=== PATIENT | female | born 1965 | race Caucasian/White ===

== ENCOUNTER → 2021-08-07 | Outpatient (CLI) | payer BC ==
--- NOTE | 2021-08-07 10:50 | MM ---
Reason for exam: screening (asymptomatic). Last mammogram was performed 4 years and 3 months ago. Physical Findings: A clinical breast exam by your physician is recommended on an annual basis and results should be correlated with mammographic findings. MG 3D Screening Mammo W/Cad Bilateral CC and MLO view(s) were taken. Prior study comparison: April 24, 2017, mammogram. March 09, 2016, mammogram. The breast tissue is heterogeneously dense. This may lower the sensitivity of mammography. There are benign appearing round calcifications in the right breast. There is no discrete abnormality. ASSESSMENT: Benign, BI-RAD 2 RECOMMENDATION: Routine screening mammogram of both breasts in 1 year.
== END | disposition home or self-care (01) ==
LOC: RADMAMWWP 09:27
PROVIDERS: ATTEND Internal Medicine
DX: Z12.31 Encounter for screening mammogram for malignant neoplasm of breast (principal)
CPT/HCPCS: 77063; 77067

== ENCOUNTER → 2021-09-18 | Outpatient (CLI) | payer BC ==
--- NOTE | 2021-09-18 07:54 | MR ---
EXAMINATION TYPE: MR lumbar spine wo con DATE OF EXAM: 09/18/2021 COMPARISON: Outside MRI lumbar spine January 31, 2021 images, report not available HISTORY: Prior outside imaging on synapse, low back pain, history of sx L5-S1 TECHNIQUE: Multiplanar, multisequence imaging of the lumbar spine is performed without IV contrast. FINDINGS: Current exam is degraded by patient motion. Sagittal images of the lumbar spine show verteb ral body heights and alignment to remain satisfactory. Multilevel disc desiccation is present. Disc s pace heights are maintained. There is redemonstration artifact from surgical change at L5-S1 level wi th artificial metallic disc material and posterior interpedicular rods and screws. The conus medulla ris remains normal in position and signal ending mid L1 level. The bone marrow signal intensity is w ithin normal limits above and below level of surgery. Axial images show T12-L1 and L1-L2 levels to remain within normal limits. Axial images at L2-L3 level redemonstrated mild facet degenerative changes bilaterally with focal rig ht paracentral disc protrusion mildly facing anterior thecal sac. Patent bilateral neural foramina. N o significant change from prior. Axial images at L3-L4 level showed mild broad disc bulge with posterior annular tear mildly effaces t he anterior thecal sac, patent bilateral neural foramina. No significant change from prior. Axial images at L4-L5 level mild broad-based posterior disc protrusion mildly effacing the anterior t hecal sac and some artifact from inferior surgical change. Patent bilateral neural foramina. No signi ficant change from prior. Axial images at L5-S1 level show artifact from posterior surgical change, spinal canal is preserved. The bilateral neural foramina are patent. No significant change from prior. IMPRESSION: Post surgical change L5-S1 level redemonstrated. Stable and satisfactory alignment. Multi level degenerative changes in the mid to lower lumbar spine again seen. No significant degenerative p rogression from prior MRI.
== END | disposition home or self-care (01) ==
LOC: RADMRIMAIN 07:02
PROVIDERS: ATTEND Orthopaedic Surgery
DX: M47.816 Spondylosis without myelopathy or radiculopathy, lumbar region (principal)
CPT/HCPCS: 72148

== ENCOUNTER → 2021-09-19 | Outpatient (CLI) | payer BC ==
--- NOTE | 2021-09-19 08:45 | CT ---
EXAMINATION TYPE: CT lumbar spine wo con DATE OF EXAM: 09/19/2021 7:14 AM COMPARISON: HISTORY: low back pain CT DLP: 555.3 mGycm Automated exposure control for dose reduction was used. Unenhanced CT of the lumbar spine was performed. Bone and soft tissue window settings are submitted as well as coronal and sagittal reconstructions. L1-L2: Normal disc space height. No disc herniation protrusion or central stenosis. No facet joint arthropathy. No evidence for foraminal encroachment. L2-L3: Normal disc space height. No disc herniation protrusion or central stenosis. No facet joint arthropathy. No evidence for foraminal encroachment. L3-L4: Normal disc space height. No disc herniation protrusion or central stenosis. No facet joint arthropathy. No evidence for foraminal encroachment. L4-L5: Grade 1 anterolisthesis measuring 2 mm. Mild degenerative disc space narrowing. Mild posterior disc bulge. No herniation or central stenosis. No foraminal encroachment visualized this time. L5-S1: mild broad-based posterior disc protrusion mildly effacing the anterior thecal sac and some ar tifact from inferior surgical change. Patent bilateral neural foramina. IMPRESSION: 1. Mild broad-based posterior disc protrusion L5-S1. Streak artifact from a surgical change
== END | disposition home or self-care (01) ==
LOC: RADCTMAIN 06:56
PROVIDERS: ATTEND Orthopaedic Surgery
DX: M51.27 Other intervertebral disc displacement, lumbosacral region (principal)
CPT/HCPCS: 72131

== ENCOUNTER → 2021-09-27 | Outpatient (CLI) | payer BC ==
[2021-09-27 18:45] LABS: Basophils # (A) 0.01 X 10*3/uL (0.00-0.10); Basophils % (A) 0.3 %; Eosinophils # (A) 0.04 X 10*3/uL (0.04-0.35); HCT 36.8 % (37.2-46.3); HGB 12.5 g/dL (12.0-15.0); Immature Grans, Automated 0.3 %; Lymphocytes # (A) 1.01 X 10*3/uL (0.90-5.00); Lymphocytes % (A) 26.5 %; MCH 31.3 pg (27.0-32.0); Mean Platelet Volume 12.7 fL (9.5-12.2); Monocytes # (A) 0.43 X 10*3/uL (0.20-1.00); Monocytes % (A) 11.3 %; NRBC Per 100 WBC 0 /100 WBCS (0.0-0.0); Neutrophils # (A) 2.31 X 10*3/uL (1.80-7.70); Neutrophils % (A) 60.6 %; Platelet Count 153 X 10*3/uL (140-440); RDW 12.5 % (11.5-14.5); WBC 3.81 X 10*3/uL (4.50-10.00)
[2021-09-27 21:56] LABS: African American GFR (CKD) 95.5 (60.0-200.0); BUN/Creat Ratio 13.79 Ratio (12.00-20.00); Blood Urea Nitrogen 11.1 mg/dL (9.0-27.0); Carbon Dioxide 22.6 mmol/L (20.0-27.5); Chloride 98 mmol/L (96-109); Glucose 93 mg/dL (70-110); Non-African American GFR(CKD) 82.4 (60.0-200.0); Potassium 4.2 mmol/L (3.5-5.5); Sodium 137 mmol/L (135-145)
[2021-09-27 21:57] LABS: ALT 30 U/L (8-44); AST 34 U/L (13-35); Albumin 4.6 g/dL (3.8-4.9); Albumin/Globulin Ratio 1.71 (1.60-3.17); Alkaline Phosphatase 79 U/L (41-126); Amylase 24 U/L (23-121); Bilirubin, Conjugated <0.20 mg/dL (0.20-0.40); C Reactive Protein <0.30 mg/dL (0.00-0.80); Globulin 2.7 g/dL (1.6-3.3); Lipase 11 U/L (14-63); Total Protein 7.3 g/dL (6.2-8.2)
[2021-09-27 22:04] LABS: Erythrocyte Sedimentation Rate 32 mm/Hr (0-30)
== END | disposition home or self-care (01) ==
LOC: LABWHC1 10:08
PROVIDERS: ATTEND Orthopaedic Surgery
DX: M47.816 Spondylosis without myelopathy or radiculopathy, lumbar region (principal)
CPT/HCPCS: 36415; 80048; 80076; 82150; 82306; 83690; 85025; 85652; 86140

== ENCOUNTER → 2021-10-11 | Outpatient (CLI) | payer BC ==
--- NOTE | 2021-10-11 16:22 | US ---
EXAMINATION TYPE: US abdomen complete DATE OF EXAM: 10/11/2021 COMPARISON: CLINICAL HISTORY: R10.84 ABD PAIN. Generalized pain. Hx GB removed. EXAM MEASUREMENTS: Liver Length: 13.9 cm CBD: 0.4 cm Spleen: 9.6 cm Right Kidney: 10.4 x 4.3 x 4.1 cm Left Kidney: 9.9 x 4.5 x 4.4 cm Pancreas: wnl Liver: wnl Gallbladder: Surgically absent Evidence for sonographic Her's sign: neg CBD: wnl Spleen: wnl Right Kidney: No hydronephrosis or masses seen Left Kidney: No hydronephrosis or masses seen Upper IVC: wnl Abd Aorta: Limited visualization of proximal due to bowel gas IMPRESSION: 1. No acute ultrasound abnormality.
== END | disposition home or self-care (01) ==
LOC: RADUSWWP 12:12
PROVIDERS: ATTEND Internal Medicine
DX: R10.84 Generalized abdominal pain (principal)
CPT/HCPCS: 76700

== ENCOUNTER 2021-11-30 12:00 | Inpatient (IN) | payer BC ==
[2021-12-25 10:58] VITALS: BMI 24.7
--- NOTE | 2021-12-25 16:34 | P.HPOR ---
History of Present Illness H&P Date: 12/18/21 [facility] Date of :[birth year] Age: 56 year Height: 5'10" Weight: 175 lbs BMI: 25.11 kg/m2 Occupation: net software engineer VAS: 8 CHIEF COMPLAINT: Lumbar pain HISTORY: Xrays No new xrays taken in office Trauma or injury No Work-Related No Pain description aching, sharp. Location diffuse Activity Modification yes , unable to stand or ambulate for extended periods of time. Hand Dominance right DOI: Chronic, no injury or trauma. DOS: S/P failed lumbar fusion 2007 and revision in 2008 TREATMENTS COMPLETED: 6 weeks of PT completed? Yes Did it help? No Physician directed home exercise completed? Yes, has trialed but it exacerbates her symptoms. Medications yes List: Percocet, Oxycontin, Robaxin all without discernable improvements to her symptoms. Alternative interventions Chiropractic: No Massage therapy: No Brace: No Injections Yes (lumbar VIV) How many? 1 Did they help? No RFA: No SUBJECTIVE: Patient returns to the office for a pre-operative review of the planned revision L4-S1 decompression and fusion. Since the time of the last appointment the patient denies any improvements to her symptoms. She reports that her symptoms have continued to significantly impact her ability to perform daily functions and has failed to improve with all conservative modalities. Patient is understa nding of this and agrees to proceed with the planned procedure. She denies any any bladder or bowel retention/incontinence, no perineal numbness/tingling, and ambulates independently. Of note, she denies any changes to her current course of medications. HPI: Patient last presented to the office on 10/11/2021 for a recheck of her lumbar spine and to review her CT and MRI obtained after the time of the last appointment. Since the time oft he last appointment the patient reports that her symptoms have not changed. She reports having continued with the physician recommended HEP without any improvements. Overall she reports no discernable improvements with any conservative modalities trialed thus far. She is having continued pain with activities and decreased ability to complete her daily tasks due to her symptoms. Otherwise she continues to deny any bladder or bowel retention/incontinence, no perineal numbness/tingling, and ambulates independently. Of note, she denies any changes to her current course of medications. Ms. Arriaga last presented to the office on 09/06/2021 for an evaluation of her lumbar spine. Patient reports diffuse low back pain ongoing for 11 months with no known trauma or injury to indicate an exact onset of her symptoms. She describes this pain as "sharp" and radiates down into the left buttock and anterolateral thigh. Her symptoms are exacerbated with and standing or ambulation. Due to this she notes great difficulty with completing many of her daily tasks. Patient does report that her symptoms have progressively worsened since the onset and so has her disability. As for treatments the patient notes that she has been previously managed by Dr. Cervantes regarding her lumbar spine. She has had a lumbar VIV with no improvements to her symptoms. Additionally she has recently completed a course of PT with no improvements. She denies completing home exercises as it exacerbates her symptoms. Patient has trialed Percocet, Oxycontin, and Robaxin for greater than 3 months with no improvements to her symptoms. Of note, the patient does report having a history of a failed fusion done in [place] in 2007 and then a subsequent revision in 2008. Otherwise she denies any bladder or bowel issues, no perineal numbness/tingling, and is ambulating without the use of any aides. The patients' past social, medical, family, surgical history, as well as review of systems, have been reviewed. Please refer to the Neurosurgery History and Physical form that has been scanned in to our electronic medical record system. 14 points review of systems completed and as stated in HPI, all other systems reviewed are negative. Social History: Reviewed, see appropriate section of the chart for details. D9Mpnhsyx: never a smoker P3 Alcohol: none P3 Family History: Reviewed, see appropriate section of the chart for details. H9Donxpm: alive diabetes.hypertension. P2 Father: [place] P2 Sibling(s): MVA,colon cancer. P2 Family History: colon cancer. [place] diabetes.hypertension. P2 Past Medical History: Reviewed, see appropriate section of the chart for details. P1 Current Medications: P1Rx: OxyCONTIN 20 mg tablet,crush resistant,extended release Ref: 0 Rx: Percocet 10 mg-325 mg tablet Ref: 0 Rx: Protonix 40 mg tablet,delayed release Ref: 0 Rx: Robaxin Ref: 0 P1 PHYSICAL EXAMINATION: General: Awake, alert, appropriate for age, in no acute distress. HEENT: No unusual neck masses around region of lateral neck triangle, thyroid, supraclavicular groove Heart: Regular rate and rhythm, normal S1, S2 and no murmur/gallop. Lungs: Clear to auscultation bilaterally with no use of accessory muscles. Extremities: Skin warm and dry without acute lesions, coloration, temperature, skin intact, no tenderness or erythema Integument: Hairy patches: Absent Dorsal skin dimples: Absent Cafe au lait spots: Absent Surgical incisions: yes , well healed Palpation: Please see Pain drawing on Intake sheet for further detail. Midline spinal tenderness: Yes E6 Paralumbar tenderness: Yes E6 Parathoracic tenderness: No E6 Buttocks tenderness: No E6 Special findings: No POSTURAL and MUSCULO-SKELETAL EVALUATION: Coronal Balance: NEUTRAL Recumbent testing: Patient is able to lay flat on back Sagittal Balance: NEUTRAL Shoulder Profile: LEVEL Pelvic Girdle: LEVEL Neck ROM: UNRESTRICTED Lumbar ROM: RESTRICTED Shoulder ROM: Symmetrical Hip ROM: Symmetrical Knee ROM: Symmetrical Hands: Normal appearance, symmetrical Feet: Normal appearance, Symmetrical VASCULAR STATUS : LEFT RIGHT Wrist Pulses INTACT INTACT Pedal Pulses (Dors. pedis & post.tibialis) INTACT INTACT Color NORMAL NORMAL Edema Absent Absent NEUROLOGIC EXAMINATION: Mental Status:Awake and alert, fully oriented, with normal attention, concentration and memory, and fluent, appropriate speech. Cranial Nerves: I: Olfactory not tested. II: Visual acuity normal, no visual field deficit noted with confrontation. III,IV: Normal pupillary reflexes & intact extraocular movements without nystagmus. V,: Intact symmetrical facial sensation. VII: Intact symmetrical facial motor movement VIII: Hearing intact. IX,X: Intact gag, swallow, & normal voice. XI: Sternocleidomastoid, trapezius function intact. XII: Tongue midline with normal movements. L'hermitte's Sign: Negative / absent Spurling'Sign: Absent bilaterally. Cubital percussion test: Absent bilaterally. Russell-Tinel sign - Carpal region: Absent bilaterally. Straight Leg Raising: Absent bilaterally. Crossed straight leg raise: negative O8 MOTOR EXAM (0-5/5, N/T) STRENGTH RIGHT LEFT Shoulder Abd (not part of the ANTONINA score) 5 5 Elbow Flexors 5 5 Elbow Extensor 5 5 Wrist Dorsiflexors 5 5 Finger Abductor 5 5 Painting Worker 5 5 Hip Flexor (Not part of ANTONINA Motor score) 5 4+ Knee Flexor 5 5 Knee Extensor 5 5 Ankle dorsiflexor 5 5 Ankle plantarflexion 4 4+ Extensor hallucis 5 5 REFLEXES(0-4/2, NT) RIGHT LEFT Upper Extremities 2 2 Lower Extremities 2 2 Pathological Reflexes RIGHT LEFT Russell's Absent Absent Clonus Absent Absent Babinski Absent Absent # Indicates mechanical impairment Muscle appearance: Symmetrical, without signs of atrophy or dystrophy. Sensory system (0-4, N/T) Test type RU NEEL RL LL Joint-Position 2 2 2 2 Vibration 2 2 2 2 Pain & LT sense 2 2 2 2 Dermatomal Deficit: None None None L5-S1 Gait and Functional Evaluation: Ambulatory aids: Independent Romberg's test: Intact bilaterally Toe heel walk / heel-toe walk intact while maintaining satisfactory balance? yes Squatting/straightening w/o assistance to a min of 60 degree knee flexion? yes Single leg stance: Positive on the left Trendelenburg sign negative bilaterally Hand and finger dexterity intact bilaterally? yes Disdiadochokinesis examination negative bilaterally? yes RADIOGRAPHIC STUDIES: XRay taken on 09/06/21 of Lumbar Spine: Post surgical changes noted with 360 fusion construct at L5-S1 with good fusion block noted. There is no evidence of hardware failure on xray. There is a grade I unstable spondylolisthesis with ASD of L4-5 noted. There is severe facet arthrosis and insufficiency at L4-5 noted causing this. There are no fractures noted. There is likely b/l foraminal stenosis due to this slip. There are no fractures noted. AP pelvis show level congruent pelvis w/o fracture. CT scan from 09/19/2021 of the lumbar spine demonstrates: this is reviewed and demonstrate a grade 1 spondylolisthesis L4-L5 with adjacent segment disease postoperative changes noted L5-S1 with reasonable fusion at this level. There is no other fracture dislocation noted no lesions noted. Hounsfield units above 120 MRI scan from 09/18/2021 of the lumbar spine demonstrates: this is reviewed in office today and demonstrates grade 1 spondylolisthesis L4 and L5 with postoperative changes L5-S1 area there is bilateral foraminal stenosis L4-L5 with boggy facets facet hypertrophy ligamental hypertrophy as well as the slip. There is no fracture or other dislocation noted. No lesions CBC, BMP, CRP, Sed Rate, Total Protein, Albumin, and Vitamin D labs are reviewed. These do not demonstrate any infective process at this time. IMPRESSION AND PLAN: It was my pleasure to have seen and examined Petrona. I reviewed the patient's clinical syndrome, physical findings, and imaging studies during the appointment today. It is my impression that the patient has a diagnosis of. 1. S/P L5-S1 revision fusion 2.L4-L5 ASD with grade 1 spondylolisthesis 3. left lower extremity radiculopathy 4. lower extremity weakness I outlined the natural course history without intervention and various interventional options. Based on my findings I suggest the following course of action: 1.The nature of the disorder and treatment options were discussed with the patient. I discussed treatment options with the patient, including operative and non- operative options, and they have elected to proceed with the following surgical procedure: Revision L4-S1 decompression and fusion The indications, risks, benefits, and alternatives to surgery were discussed with the patient at length. Specifically (but not limited to) the risks of infection, stiffness, recurrence of symptoms, need for revision surgery, local numbness, neurovascular injury, and blood clots were discussed. The patient's questions were answered. The decision to proceed was made. Consent will be obtained for the procedure. Spine Surgery Risk Review Petrona Arriaga is presenting for evaluation of low back pain. It was my pleasure to have seen and examined Petrona Arriaga. In our visit today we have had a chance to go over subjective complaints, physical examination findings and treatments including the natural course history without intervention and various interventional options. The patients imaging demonstrates Xrays: Post surgical changes noted with 360 fusion construct at L5-S1 with good fusion block noted. There is no evidence of hardware failure on xray. There is a grade I unstable spondylolisthesis with ASD of L4-5 noted. There is severe facet arthrosis and insufficiency at L4-5 noted causing this. There are no fractures noted. There is likely b/l foraminal stenosis due to this slip. There are no fractures noted. AP pelvis s how level congruent pelvis w/o fracture. CT: this is reviewed and demonstrate a grade 1 spondylolisthesis L4-L5 with adjacent segment disease postoperative changes noted L5-S1 with reasonable fusion at this level. There is no other fracture dislocation noted no lesions noted. Hounsfield units above 120. MRI: this is reviewed in office today and demonstrates grade 1 spondylolisthesis L4 and L5 with postoperative changes L5-S1 area there is bilateral foraminal stenosis L4-L5 with boggy facets facet hypertrophy ligamental hypertrophy as well as the slip. There is no fracture or other dislocation noted. No lesions On physical exam, Petrona Arriaga demonstrates severely restricted lumbar ROM with bilateral lower extremity radiculopathy and weakness. I have explained to the patient that as their condition progresses it will cause further neurological deficits and eventual paralysis. Based on the patients im aging, physical exam, and the rapid progression and disabling nature of their symptoms, at this time I recommend surgery in the form or a: Revision L4-S1 decompression and fusion. I discussed the risk and benefits of this procedure at length with Petrona Arriaga. The patient agreed to considered pursuing the procedure abovementioned. Prior to surgery, she should follow up with her PCP (Cardio, ID, IM etc) for clearance. Questions were invited and answered, and the patient wishes to proceed as outlined below. Currently, I am recommendin.Revision L4-S1 decompression and fusion 2.Follow up with PCP for surgical clearance 3.Review of surgical risks and benefits as well as an educational packet on t he proposed surgical procedure. Risks: All surgical procedures come with inherent risks, including those related to positioning, anesthesia, intraoperative findings, and postoperative complications. It is important to understand that surgery does not come with any guarantee of a successful outcome as complications and adverse events are always possible. The patient was given a handout in office today discussing the surgical procedure and risks associated with the intervention, both of which were discussed with the patient. These risks include but are not limited to the following: * Experiencing same, different or even worse symptoms in back, neck, arms, or legs compared to before surgery. Requiring further surgery or other forms of treatment presently or at some time in the future at same or other levels of the intended spine surgery. On an extreme but fortunately relatively rare basis severe complication such as blindness, stroke, heart attack, temporary and/or permanent nerve injury, paralysis, coma, or may occur, sometimes without known explanation. Surgical complications may include but are not limited to risk of infection, fluid accumulation in the surgical dissection site, including a seroma or hematoma, that requires additional surgery, wound drainage, bleeding, new numbness or weakness, vision changes/loss, spinal fluid leakage, non-healing and/or infected incision, headaches, difficulty or inability to swallow, hoarseness, hemopneumothorax, pneumothorax, impotence, retrograde ejaculation, vaginal dryness; injury to nerves, spinal cord, blood vessels, lymphatics or other vital organs (i.e., bowel injury, injury to the great vessels); heterotopic bone formation; complications related to the hardware such as screws, rods, cages including misplaced hardware, device failure, instrumentation at the wrong spine level, hardware fracture/breakage, or hardware loosening; vertebral failure of the spinal column above or below the newly placed hardware; retained surgical instrumentations or devices and the need for further surgery. * Medical risks of the planned spine surgery include but are not limited to generalized Infections to the whole body or local areas outside of the surgical site (sepsis), heart attack, bleeding, anaphylaxis, meningitis, seizure, epilepsy, hearing loss, burn little, laceration of the head or other areas of the body, bruising, hypersensitivity of the skin, bladder over distension; allergic reaction; shoulder injury related to positioning; fat, blood and air clots to other areas of the body like heart, lungs, brain; failure of internal organs such as lungs, kidneys, liver and excessive bleeding. If blood transfusions are necessary, note that transfusions may cause intolerance reactions such as anaphylaxis or other complex reactions. Despite best efforts, the results of spine surgery might not heal in terms of bone, soft tissues such as skin, fascia, ligaments, and joints. Additionally, in order to achieve best possible results, spine surgery may be carried out beyond the initially planned levels and involve decompression, fusion including insertion of hardware at levels other than the original intended area of surgical interest change some portions of the procedure in order to ensure the best possible outcomes. With spine surgery and spinal fusion, there are different off label uses of instrumentation (devices, implants and hardware) as well as biological substances (bone morphogenic proteins, demineralized bone matrix) as well as using extra bone from allograft sources (i.e. cadaver bone) or autograft (iliac crest bone, ribs, or the spine itself). The patient has been given information about these practices and their inherent risks and benefits. [facility] is an educational center that serves as a training facility for neurosurgical and orthopedic MOBILE PRODUCT MANAGER and Nursing students. Physician assistants are medically trained surgical providers who function in the outpatient, inpatient, and operating room setting under the direct supervision of the attending surgeon. [facility] has multiple operating rooms with single and overlapping rooms running daily. They currently function under the required guidelines as produced by the [facility] Finance Committee with regards to the overlapping rooms and will continue to comply with changes to this policy as they occur. The requirements include and are complied with as follows: (1) the critical portions of the overlapping rooms will not occur at the same time, (2) the attending physician will be physically present during the critical portions of the procedure and immediately available during the entire case, and (3) a back-up attending is designated should the primary attending not be immediately available. The patient has had a chance to review all the listed information, has been given print outs detailing this information, and has had all his/her questions answered to their satisfaction. It was my pleasure to have seen and examined Petrona Arriaga. In our visit today we have had a chance to go over my understanding of our patient's current condition, the natural course history without intervention and various interventional options. Questions were invited and answered, and the patient wishes to proceed as outlined above. I have seen and examined the patient for 25 minutes and we have spent more than 50% of the time in repeat and detailed counseling about the patient's condition, its natural course history with out and as much as can be predicted with surgery and re-review of various surgical treatment options. In conclusion, Petrona Arriaga requested we proceed with the above suggested surgery and are willing to accept risks and limitations of the suggested surgery as nature of the disease process and our best attempts at treatment for the condition. Thank you again for allowing us to be part of your patient's care. Please don't hesitate to contact me if you have any further questions. Signed and authenticated by: [employer] P:\\\\ppart\\\\[id number]\\\\[id number]\\[id number].PNG \\d Fam [facility] Complex and Minimally Invasive Spine Surgery [address] [place] [address] Past Medical History Past Medical History: GERD/Reflux Additional Past Medical History / Comment(s): hx stomach ulcer, internal hemorrhoids., back pain History of Any Multi-Drug Resistant Organisms: None Reported Past Surgical History: Back Surgery, Section, Hysterectomy, Orthopedic Surgery Additional Past Surgical History / Comment(s): back surgery x2, neck surgery, left rotator cuff, 9 arthroscopic knee surgeries, several abdominal surgeries for endometriosis. Past Anesthesia/Blood Transfusion Reactions: Postoperative Nausea & Vomiting (PONV) Additional Past Anesthesia/Blood Transfusion Reaction / Comment(s): severe ponv Past Psychological History: No Psychological Hx Reported Smoking Status: Never smoker Past Alcohol Use History: None Reported Past Drug Use History: None Reported - Past Family History Brother(s) Family Medical History: Cancer Additional Family Medical History / Comment(s): colon cancer Medications and Allergies Home Medications Medication Instructions Recorded Confirmed Type Pantoprazole [Protonix] 40 mg PO DAILY 12/25/21 12/25/21 History methocarbamoL [Robaxin] 500 mg PO BID 12/25/21 12/25/21 History oxyCODONE HCL [OxyCONTIN] 20 mg PO Q12H 12/25/21 12/25/21 History oxyCODONE-APAP 10-325MG [Percocet 1 tab PO BID PRN 12/25/21 12/25/21 History 10-325 mg] Allergies Allergy/AdvReac Type Severity Reaction Status Date / Time Sulfa (Sulfonamide Allergy Unknown Rash/Hives, Verified 12/25/21 10:59 Antibiotics) Dyspnea metoclopramide [From Reglan] Allergy Rash/Hives, Verified 12/25/21 10:59 anxiety, skin crawling prochlorperazine Allergy Rash/Hives, Verified 12/25/21 10:35 [From Compazine] anxiety, skin crawling Physical Examination Osteopathic Statement: *. No significant issues noted on an osteopathic structural exam other than those noted in the History and Physical/Consult.
[2021-12-26] MEDS ORDERED: ACETAMINOPHEN TAB 500 MG TAB PO PRN (05:00)
[2021-12-26] MEDS ORDERED: TRANEXAMIC ACID IN NACL,ISO-OS 1,000 MG in SALINE 1 100ML.BAG IVPB PRN ×2 (05:00)
[2021-12-26] MEDS ORDERED: MELOXICAM 7.5 MG TAB PO PRN (05:00)
[2021-12-26] MEDS ORDERED: ONDANSETRON 4 MG/2 ML VIAL IVP PRN ×2 (05:00→12:31)
[2021-12-26] MEDS ORDERED: GABAPENTIN 300 MG CAP PO PRN (05:00)
[2021-12-26] MEDS ORDERED: MIDAZOLAM 2 MG/2 ML VIAL IV PRN (06:03)
[2021-12-26] MEDS: LACTATED RINGERS 1,000 ML IV SCH (06:14)
[2021-12-26] MEDS ORDERED: SCOPOLAMINE 1 MG/72 HR PATCH TRANSDERM ONE (06:46)
[2021-12-26] MEDS ORDERED: fentaNYL (PF) 50 MCG/ML 2 ML AMP ONE (07:25)
[2021-12-26] MEDS ORDERED: ROCURONIUM 10 MG/ML (5 ML VIAL) IV ONE (07:25)
[2021-12-26] MEDS ORDERED: PHENYLEPHRINE-0.9% NACL SYG 1,000 MCG/10 ML SYRINGE ONE (07:25)
[2021-12-26] MEDS ORDERED: SUCCINYLCHOLINE CHLORIDE 100 MG/5 ML SYR IV ONE (07:25)
[2021-12-26] MEDS ORDERED: MIDAZOLAM 2 MG/2 ML VIAL ONE (07:25)
[2021-12-26] MEDS ORDERED: SODIUM CHLORIDE 0.9% 100 ML BAG ONE (07:25)
[2021-12-26] MEDS ORDERED: NEOSTIGMINE 1 MG/ML 10 ML VIAL ONE (07:25)
[2021-12-26] MEDS ORDERED: ALBUMIN HUMAN 5% (25gm) 500 ML VIAL IVPB ONE (07:25)
[2021-12-26] MEDS ORDERED: TRANEXAMIC ACID IN NACL,ISO-OS 1,000 MG/100 ML BAG ONE (07:25)
[2021-12-26] MEDS ORDERED: KETAMINE 10 MG/ML 20 ML VIAL ONE (07:25)
[2021-12-26] MEDS ORDERED: PROPOFOL 10 MG/ML 20 ML VIAL IV ONE (07:25)
[2021-12-26] MEDS ORDERED: HYDROmorphone (PF) 1 MG/ML ONE (07:25)
[2021-12-26] MEDS ORDERED: LIDOCAINE 4% LTA KIT (4 ML) TOPICAL ONE (07:25)
[2021-12-26] MEDS ORDERED: ceFAZolin 1,000 MG VIAL ONE (07:25)
[2021-12-26] MEDS ORDERED: GLYCOPYRROLATE 0.2 MG/ML 2 ML VIAL ONE (07:25)
[2021-12-26] MEDS ORDERED: GELATIN SPONGE,ABSORB (LARGE) 1 EACH SPONGE TOPICAL ONE ×2 (07:29→10:10)
[2021-12-26] MEDS ORDERED: THROMBIN (BOVINE) 5,000 UNIT VIAL TOPICAL ONE ×2 (07:29→10:10)
[2021-12-26] MEDS ORDERED: LIDOCAINE 0.5%-EPI 1:200,000 50 ML VIAL SQ ONE (07:29)
[2021-12-26] MEDS ORDERED: ceFAZolin 3,000 MG in SODIUM CHLORIDE 0.9% IRRIGATIO 3,000 ML IRRIGATION ONE (07:29)
--- NOTE | 2021-12-26 07:42 | P.PN ---
Progress Note - Text Progress Note Date: 12/26/21 History and Physical UPDATE I have seen and examined the patient and reviewed the history and physical. There appear to be no significant changes in the patient's current medical status as outlined in the current History and Physical.
[2021-12-26] MEDS ORDERED: TRANEXAMIC ACID 1,000 MG in SODIUM CHLORIDE 0.9% 100 ML IVPB ONE ×6 (07:44)
[2021-12-26] MEDS ORDERED: TRANEXAMIC ACID IN NACL,ISO-OS 1,000 MG in SALINE 1 100ML.BAG IVPB ONE (07:44)
[2021-12-26] MEDS ORDERED: LACTATED RINGERS 1,000 ML IV ONE ×2 (09:51→11:00)
[2021-12-26] MEDS ORDERED: VANCOMYCIN 1,000 MG VIAL MISCELLANE ONE ×2 (11:31→11:53)
--- NOTE | 2021-12-26 12:20 | FL ---
EXAMINATION TYPE: FL guidance operating room, XR lumbar spine 2 or 3V DATE OF EXAM: 12/26/2021 CLINICAL HISTORY: Low back pain. TECHNIQUE: Fluoroscopy. Intraoperative 2 views lumbar spine. COMPARISON: CT lumbar spine September 19, 2021 FINDINGS: Fluoroscopic guidance was provided during lumbar fusion procedure performed by Dr. Stevens son. A total of 1 minute 13 seconds of fluoroscopic time was utilized during the procedure and 7 spo t images was acquired. Intraoperative images obtained show old metallic hardware and interpedicular rods and screws at L5-S1 level along with anterior inferior L5 screw. There is extension of interpedicular rods and screws th rough the bilateral L4 level with placement of metallic disc material L4-L5 level. Stable and satisfa ctory alignment noted on intraoperative images obtained. IMPRESSION: As Above.
[2021-12-26] MEDS ORDERED: MAGNESIUM HYDROXIDE 2,400 MG/10 ML CUP PO PRN (12:31)
[2021-12-26] MEDS ORDERED: SENNOSIDES-DOCUSATE SODIUM 1 EACH TAB PO PRN (12:31)
[2021-12-26] MEDS ORDERED: bisacodyL 10 MG SUPP RECTAL PRN (12:31)
[2021-12-26] MEDS ORDERED: oxyCODONE-APAP 10-325MG 1 EACH TAB PO PRN (12:35)
[2021-12-26] MEDS ORDERED: VANCOMYCIN IV PER PHARMACY 1 EACH MISC MISCELLANE PRN (12:37)
[2021-12-26] MEDS ORDERED: diphenhydrAMINE 50 MG/ML 1 ML VIAL IVP ONE (12:58)
[2021-12-26] MEDS: HYDROmorphone 0.5 MG/0.5 ML SYRINGE IVP PRN ×2 (13:02→14:35)
[2021-12-26] MEDS ORDERED: HYDROmorphone 0.5 MG/0.5 ML SYRINGE IVP ONE ×2 (13:30→14:12)
[2021-12-26 14:14] LABS: Basophils % (A) 0 %; Eosinophils # (A) 0.1 k/uL (0-0.7); Eosinophils % (A) 1 %; HCT 27.4 % (34.0-46.0); HGB 9.5 gm/dL (11.4-16.0); Hypochromasia Slight; Lymphocytes # (A) 0.6 k/uL (1.0-4.8); Lymphocytes % (A) 7 %; MCH 32.7 pg (25.0-35.0); MCHC 34.8 g/dL (31.0-37.0); MCV 93.9 fL (80.0-100.0); Mean Platelet Volume 10.7; Monocytes # (A) 0.4 k/uL (0-1.0); Monocytes % (A) 5 %; Neutrophils # (A) 6.6 k/uL (1.3-7.7); Neutrophils % (A) 86 %; Platelet Count 110 k/uL (150-450); Poikilocytosis Slight; RBC 2.92 m/uL (3.80-5.40); RDW 14.2 % (11.5-15.5); WBC 7.7 k/uL (3.8-10.6)
[2021-12-26] MEDS: SODIUM CHLORIDE 0.9% 1,000 ML IV SCH (15:05)
--- NOTE | 2021-12-26 15:59 | P.CONS ---
History of Present Illness - Reason for Consult Consult date: 12/26/21 Medical management Requesting physician: Fam Davis - Chief Complaint Back pain - History of Present Illness Patient is a 56 year old female with PMH of chronic lower back pain presents to the [facility] for elective surgery. 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 She is status post failed lumbar fusion in 2007 and revision in 2008. She underwent planned revision of L4-S1 decompression and fusion. She was admitted after her procedure. She was seen and examined after her surgery. Patient reports excruciating lower back pain at the site of incision. Pain is 10/10 in severity. She denies any bladder or bowel incontinence. She denies any saddle anesthesia. Complains of left hand numbness along the median nerve d istribution. She denies any headache, lower extremity edema, nausea or vomiting, fever or chills, cough, chest pain, shortness of breath, palpitations, changes in urination or bowel habits. No changes in appetite or weight. Vital signs are stable. Review of systems is performed and is negative except above. General: [non toxic], [no distress], [appears at stated age] Derm: [warm], [dry] Head: [atraumatic], [normocephalic], [symmetric] Eyes: [EOMI], [no lid lag], [anicteric sclera] Mouth: [no lip lesion], [mucus membranes moist] Cardiovascular: [S1S2 reg], [no murmur], [positive DP pulse bilateral] Lungs: [CTA bilateral], [no rhonchi, no rales] , [no accessory muscle use] Abdominal: [soft], [ nontender to palpation], [no guarding], [no appreciable organomegaly] Ext: [no gross muscle atrophy], [no edema], [no contractures], [TTP lumbar spine at the site of surgery, dressing clean dry and intact] Neuro: [no focal neuro deficits] Psych: [Alert], [oriented], [appropriate affect] #Acute on chronic lower back pain #Status post revision of L4-S1 decompression and fusion #Normocytic anemia #Thrombocytopenia #Obesity Patient is admitted status post revision of L4-S1 decompression and fusion. Started on Cefazolin. Pain control with Flexeril, Gabapentin, Dilaudid, Percocet as needed. Neurochecks ordered. Fall precautions in place. PT and OT is consulted to work with this patient. CBC and BMP ordered for tomorrow. Patient would benefit from a structured weight loss program. DVT prophylaxis: [SCDs] Discussed with: [Patient] Anticipated discharge: [1-2 days] Anticipated discharge place: [Home] A total of [35] minutes was spent on the care of this complex patient more than 50% of the time was spent in counseling and care coordination. Patient names her the decision maker if she cant make decisions for herself. She would like to be FULL CODE. Past Medical History Past Medical History: GERD/Reflux Additional Past Medical History / Comment(s): hx stomach ulcer, internal hemorrhoids., back pain History of Any Multi-Drug Resistant Organisms: None Reported Past Surgical History: Back Surgery, Section, Hysterectomy, Orthopedic Surgery Additional Past Surgical History / Comment(s): back surgery x2, neck surgery, left rotator cuff, 9 arthroscopic knee surgeries, several abdominal surgeries for endometriosis. Past Anesthesia/Blood Transfusion Reactions: Postoperative Nausea & Vomiting (PONV) Additional Past Anesthesia/Blood Transfusion Reaction / Comm: severe ponv Past Psychological History: No Psychological Hx Reported Smoking Status: Never smoker Past Alcohol Use History: None Reported Past Drug Use History: None Reported - Past Family History Brother(s) Family Medical History: Cancer Additional Family Medical History / Comment(s): colon cancer Medications and Allergies Home Medications Medication Instructions Recorded Confirmed Type Pantoprazole [Protonix] 40 mg PO DAILY 12/25/21 12/26/21 History methocarbamoL [Robaxin] 500 mg PO BID 12/25/21 12/26/21 History oxyCODONE HCL [OxyCONTIN] 20 mg PO Q12H 12/25/21 12/26/21 History oxyCODONE-APAP 10-325MG [Percocet 1 tab PO BID PRN 12/25/21 12/26/21 History 10-325 mg] Allergies Allergy/AdvReac Type Severity Reaction Status Date / Time Sulfa (Sulfonamide Allergy Unknown Rash/Hives, Verified 12/26/21 06:13 Antibiotics) Dyspnea metoclopramide [From Reglan] Allergy Rash/Hives, Verified 12/26/21 06:13 anxiety, skin crawling prochlorperazine Allergy Rash/Hives, Verified 12/26/21 06:13 [From Compazine] anxiety, skin crawling Physical Exam Vitals: Vital Signs Temp Pulse Pulse Resp BP BP Pulse Ox 12/26/21 14:45 83 18 136/73 98 12/26/21 14:15 78 18 147/77 97 12/26/21 14:00 68 18 136/69 12/26/21 13:45 95 16 148/74 97 12/26/21 13:30 75 18 128/77 98 12/26/21 13:15 71 16 121/75 100 12/26/21 13:00 70 16 119/75 100 12/26/21 12:45 80 16 115/73 100 12/26/21 12:38 80 16 113/61 99 12/26/21 12:34 97 F L 72 14 102/57 99 12/26/21 06:20 98.6 F 80 18 161/84 142/82 95 Intake and Output 12/26/21 12/26/21 12/26/21 06:59 14:59 22:59 Intake Total 300 2611 Output Total 1750 Balance 300 861 Intake: IV 300 2301 Blood Product 310 Rc As-1 Unit 310 [id number] Output: Urine 750 Estimated Blood Loss 1000 Other: Weight 78.1 kg Results CBC & Chem 7: 12/26/21 13:55 Labs: Abnormal Lab Results - Last 24 Hours (Table) 12/18/21 12/26/21 Range/Units 11:01 13:55 RBC 2.92 L (3.80-5.40) m/uL Hgb 9.5 L (11.4-16.0) gm/dL Hct 27.4 L (34.0-46.0) % Plt Count 110 L (150-450) k/uL Lymphocytes # 0.6 L (1.0-4.8) k/uL Crossmatch See Detail
[2021-12-26] MEDS: HYDROmorphone 1 MG/ML 1 ML SYRINGE IVP PRN ×3 (16:23→23:09)
[2021-12-26] MEDS: GABAPENTIN 300 MG CAP PO SCH ×2 (16:24→21:25)
--- NOTE | 2021-12-26 16:43 | P.OP ---
Date of Procedure: 12/26/21 Preoperative Diagnosis: 1. S/P L5-S1 revision fusion 2.L4-L5 ASD with grade 1 spondylolisthesis 3. left lower extremity radiculopathy 4. lower extremity weakness Postoperative Diagnosis: 1. S/P L5-S1 revision fusion 2.L4-L5 ASD with grade 1 spondylolisthesis 3. left lower extremity radiculopathy 4. lower extremity weakness Procedure(s) Performed: 1. Revision posterior midline approach to the lumbosacral spine 2. Exploration of fusion L5-S1 () 3. Removal of hardware L5-S1 (53661) 4. Combined interbody and posteriorlateral fusion L4-5 with spondylolisthesis reduction (40884) 5. Application of biomechanical device L4-5 (92111) 6. Revision Posteriolateral fusion L5-S1 (80957) 7. Segmental instrumentation L4-S1 (93301) 8. L4-5 bilateral laminectomy, complete facetectomy and foraminotomy (24501) 9. L5-S1 posterior extradural laminectomy for exploration and decompression of neural elements (58412) 10. Use of intraoperative neuromonitoring 11. Interpretation of intraoperative flouroscopy <1 hr (90888) Implants: -Globus Creo screw and reyna system -Amplify 11 mm 8 deg lordotic cage x1 -Magnatos -Autograft -Allograft Anesthesia: CHRYSTAL Surgeon: Fam Davis Manager Adobe #1: Camila Maya (Was present and assisted during the entire case with positioning, hardware removal, placement of hardware, decompression, reduction, closure and dressing placement. ) Estimated Blood Loss (ml): 1,000 IV fluids (ml): 2,500 Urine output (ml): 500 Pathology: none sent Condition: stable Disposition: PACU Indications for Procedure: Petrona Arriaga is presenting for evaluation of low back pain. It was my pleasure to have seen and examined Petrona Arriaga. In our visit today we have had a chance to go over subjective complaints, physical examination findings and treatments including the natural course history without intervention and various interventional options. The patients imaging demonstrates Xrays: Post surgical changes noted with 360 fusion construct at L5-S1 with good fusion block noted. There is no evidence of hardware failure on xray. There is a grade I unstable spondylolisthesis with A SD of L4-5 noted. There is severe facet arthrosis and insufficiency at L4-5 noted causing this. There are no fractures noted. There is likely b/l foraminal stenosis due to this slip. There are no fractures noted. AP pelvis show level congruent pelvis w/o fracture. CT: this is reviewed and demonstrate a grade 1 spondylolisthesis L4-L5 with adjacent segment disease postoperative changes noted L5-S1 with reasonable fusion at this level. There is no other fracture dislocation noted no lesions noted. Hounsfield units above 120. MRI: this is reviewed in office today and demonstrates grade 1 spondylolisthesis L4 and L5 with postoperative changes L5-S1 area there is bilateral foraminal stenosis L4-L5 with boggy facets facet hypertrophy ligamental hypertrophy as well as the slip. There is no fracture or other dislocation noted. No lesions On physical exam, Petrona Arriaga demonstrates severely restricted lumbar ROM with bilateral lower extremity radiculopathy and weakness. I have explained to the patient that as their condition progresses it will cause further neurological deficits and eventual paralysis. Based on the patients imaging, physical exam, and the rapid progression and disabling nature of their symptoms, at this time I recommend surgery in the form or a: Revision L4-S1 decompression and fusion. I discussed the risk and benefits of this procedure at length with Petrona Dejesusd. The patient agreed to considered pursuing the procedure abovementioned. Prior to surgery, she should follow up with her PCP (Cardio, ID, IM etc) for clearance. Questions were invited and answered, and the patient wishes to proceed as outlined below. Currently, I am recommendin.Revision L4-S1 decompression and fusion 2.Follow up with PCP for surgical clearance 3.Review of surgical risks and benefits as well as an educational packet on the proposed surgical procedure. Description of Procedure: The patient was seen and examined in the preoperative area. All preoperative protocols were followed. Informed consent was obtained risks and benefits of the procedure were discussed at length. Risks including bleeding infection damage to the surrounding tissue and risk of reoperation were discussed with the patient. Risk of anesthesia up to and including was a discussed with the patient. These are outlined in the risk review. They were willing to accept these risks and all of the risks of surgery. The patient was given a weight- based dose of antibiotics in the form of 2 g Ancef redosed every 4 hours. The patient was seen and evaluated by the anesthesia team who deemed them fit for surgery. The site was marked, the patient was willing to proceed with the procedure. The patient was transferred to the operative suite by the Department of anesthesia. They were then drifted off to sleep by the department anesthesia and GETA was performed. The patient tolerated this well. Hook catheter was placed by nursing staff, atraumatically. Once confirmation of lines and ventilation the patient was transferred to a prone Varinder table very carefully. All bony prominences including wrists, elbows, axilla, chest, hips, and thighs, and feet were padded very well. Special attention was paid to the genitalia and these were padded accordingly. SCDs were placed on bilateral lower extremities and were connected. Arms were well padded and placed on arm boards up and out in the 90/90 position. Once in position, again we confirmed good ventilation capabilities and that lines were running appropriately. The patient's lumbosacral spine was then exposed. 1010s were placed outlining the incision site. Standard alcohol was used to clean the incision site and allowed to dry. C-arm was used to biomark the patient and confirm level for incision which was marked with a skin marker. Operative briefing was performed with all teams and everyone in agreement to proceed. The patient was then prepped and draped in a normal sterile fashion. Timeout was then performed and all parties were in agreement with the procedure to be performed. Midline skin incision was then made over the previously bowel marked area and posterior dissection taken down with electrocautery to the lumbosacral fascia which was identified and cleaned with a Salazar. Midline fascia was then made over the spinous processes of L3 through the sacral region. Subperiosteal dissection was then taken down the lamina and facet joints of L4 through S1 the previous hardware was identified and cleaned using electrocautery as well as Kerrison rongeurs and rongeurs. The previous fusion was explored. The set screws were removed and the rods removed. The screws were then removed from this area of the L5 screws were loose on the left-hand side in the S1 screws were loose bilaterally. A probe was then used to probe the screw pads and the screw pads were adequate with good bony ends as well as a good 4 cain of the pedicle. We then cleaned this area thoroughly with Kerrison rongeurs and rongeurs. We explored and there was minimal posterior lateral fusion in this area there is some facet fusion however on the right-hand side there was less facet fusion on the left-hand side. This was taken down even more with the rongeur. We then turned our attention to the placement and replacement of screws. Starting at L4 bilaterally a freehand technique was used to place screws under lateral fluoroscopy a high-speed bur was used to make a remotely piloted vehicle controller hole in the pedicle at the point of the mamillary body. We then used a pedicle finder to pass through the pedicle into the body until the desired depth the feeler was then used to ensure within the 4 cain of the pedicle. We then tapped the beginning of the screw path and again felt to make sure within the 4 cain of the pedicle. We then passed the screw under lateral fluoroscopic guidance. We then repeated this on the right-hand side. We then replaced screws upsizing them in diameter as well as length at L5 bilaterally and S1. The screws were placed without issue. AP fluoroscopic imaging then confirmed good placement of screws. We then tested screws. Screws tested adequately the left S1 screw tested slightly low at 8 mA however this is likely due to the fact the patient had extremely vacuous bone in this area. AP fluoroscopic images confirmed that the screw was not medial and the screw took the same path and trajectory of the previous screws which were inside the pedicle. We then proceeded with decompression bilateral laminectomy facetectomy complete and foraminotomy were performed at L4-L5 which was listhesis. Ronjair was used to remove spinous processes prior to this and ligamentum. T cuts were then made in the L4 lamina first midline and then over the pars. The facets were then removed completely of L4 I AP followed by the SAP's of L5 bilaterally using high-speed bur Ronjair and Kerrison rongeur. This allowed for complete decompression of the foramen bilaterally at L4-L5. We then performed laminectomy bilateral medial facetectomy and foraminotomy at L5-S1 using high-speed bur and Kerrison rongeurs. We then turned our attention to the disc space of L4-L5 where we will protecting neurological elements we advanced a osteotome and the space followed by sequential steve. We sequentially shaved until we reached our desired height we then placed a blunt shaver into the position which allowed for reduction of listhesis and increased height to this area we then took an AP fluoroscopic images confirmed this to be across midline. We then used down-biting curettes as well as pituitary and rongeurs to remove the disc from this area and ensured good bleeding endplates. Once this was accomplished we were able to place Magnatos and autograft anteriorly within the disc space and impacted into place. We then selected an Amplify cage which was sized for the disc space and 8 lordotic and while protecting neural elements we impacted this into place under lateral fluoroscopic guidance. Once in position anteriorly we expanded the cage and then ensured to be anterior again under lateral imaging we then expanded the cage cranial caudal until it locked into position. We then backfilled the cage DBM we then placed the locking screw and tightened it into position. Meticulous hemostasis was then performed around the area neural elements were protected and there is no injury during placement. AP imaging confirmed good placement of cage midline. We then sized and selected rods for the construct we then placed these rods and locked them into S1 and L5 bilaterally we did perform sequential reduction into L4 bilaterally to allow for listhesis reduction. By performing sequential reduction we were able to reduce the listhesis this was then secured with set screws bilaterally at L4. We then final tightened all set screws and under lateral fluoroscopic guidance confirmed good reduction of listhesis. We then inspected the foramen bilaterally and there was increased foraminal height as well as orientation with the reduction. There was no tensioning of the nerves. We then selected a cross-link and final tightening that in position we then decorticated posterior laterally at L4 5 and L5-S1 with a high-speed bur. We then copiously irrigated the wound with 3 L of antibiotic saline solution followed by 3 L of normal sterile saline. Again meticulous hemostasis was performed using FloSeal and Surgicel and Gelfoam thrombin. Surgicel was placed over the dura. We then placed Magnatos and a combination of Autograft and allograft in the posterior lateral gutters bilaterally and compressed it into place. We then placed a drain deep to the fascia and secured into position with a stitch we then performed a layered closure first in the fascia with #1 PDS in a adsuum-db-[id number] fashion followed by 0 PDS in a simple fashion and placed OP excellent deep subcu tissue 2-0 PDS and superficial subcu tissue and skin elijah in the skin. The wound edges approximated very well. We then cleaned the wound with alcohol and dressed it sterilely with an operative foam dressing drain sponge and Tegaderm. The patient was transferred back to their hospital bed atraumatically. Drain continued to hold suction and were in good position. Patient was then awakened and extubated by the department of anesthesia having tolerated the procedure very well with no complications. They were transferred to the postoperative care unit in stable condition.
[2021-12-26 16:49] LABS: Basophils % (A) 0 %; Eosinophils # (A) 0.1 k/uL (0-0.7); Eosinophils % (A) 1 %; HCT 30.9 % (34.0-46.0); HGB 10.5 gm/dL (11.4-16.0); Lymphocytes # (A) 0.6 k/uL (1.0-4.8); Lymphocytes % (A) 8 %; MCH 32.1 pg (25.0-35.0); MCHC 33.9 g/dL (31.0-37.0); MCV 94.7 fL (80.0-100.0); Mean Platelet Volume 9.6; Monocytes # (A) 0.3 k/uL (0-1.0); Monocytes % (A) 3 %; Neutrophils # (A) 7.2 k/uL (1.3-7.7); Neutrophils % (A) 87 %; Platelet Count 143 k/uL (150-450); RBC 3.26 m/uL (3.80-5.40); WBC 8.3 k/uL (3.8-10.6)
[2021-12-26] MEDS ORDERED: ACETAMINOPHEN IV (For NPO) 1,000 MG in EMPTY BAG 1 BAG IVPB ONE (17:00)
[2021-12-26] MEDS: CYCLOBENZAPRINE 5 MG TAB PO PRN (21:25)
--- NOTE | 2021-12-26 22:58 | CT ---
EXAMINATION TYPE: CT lumbar spine wo con DATE OF EXAM: 12/26/2021 COMPARISON: 09/19/2021 HISTORY: s/p revision L4-S1 fusion & decompression CT DLP: 1060.6 mGycm Automated exposure control for dose reduction was used. Images obtained from the level of T12-S3 vertebra without contrast. The vertebra have Normal alignment. There is reyna and screws fusing posteriorly the lumbar spine from L4 to S1. There is disc prosthesis at L4-5 and L5-S1. No compression fracture. No evidence of focal b one destruction. There is no lumbar paraspinal mass. There are small calcifications in the left kidne y. There is metal artifact that obscures the detail in the spinal canal. There are postsurgical flood es with air bubbles and fluid in the posterior surgery level. There are posterior skin elijah. IMPRESSION: There is revision of the posterior fusion surgery compared to old exam. Postsurgical changes with air bubbles. No complicating process seen. No definite pathologic fluid collection.
[2021-12-27] MEDS: ACETAMINOPHEN TAB 500 MG TAB PO SCH ×4 (00:34→17:15)
[2021-12-27] MEDS: HYDROmorphone 1 MG/ML 1 ML SYRINGE IVP PRN ×7 (02:09→21:09)
[2021-12-27] MEDS: SODIUM CHLORIDE 0.9% 1,000 ML IV SCH ×2 (06:51→15:16)
[2021-12-27] MEDS: LACTATED RINGERS 1,000 ML IV SCH (06:52)
[2021-12-27] MEDS: PANTOPRAZOLE 40 MG TABLET PO SCH (07:56)
[2021-12-27] MEDS: GABAPENTIN 300 MG CAP PO SCH ×3 (07:56→20:20)
--- NOTE | 2021-12-27 08:30 | P.PN ---
Subjective Progress Note Date: 12/27/21 Principal diagnosis: Lumbar Spine spondylosis Patient seen and examined today at bedside. Ms. Arriaga states that she feels her pain is better controlled today. Patient has complaint of numbness tingling into her left hand, which was present prior to surgery, she does state she has a pinched nerve in her neck. Patient denies any numbness tingling to bilateral lower extremities. Surgical incision is clean dry and intact. Hemovac present to the right of the incision, output of 160 mL overnight. Hook catheter was removed, patient due to void. She states she is looking forward to working with physical therapy today. Patient has been afebrile, denies nausea/vomiting, and chest pain. Objective - Vital Signs Vital signs: Vital Signs Temp 98.7 F 12/27/21 01:10 Pulse 96 12/27/21 01:10 Resp 18 12/27/21 01:10 BP 135/66 12/27/21 01:10 Pulse Ox 96 12/27/21 01:10 Intake & Output 12/26/21 12/27/21 12/27/21 18:59 06:59 18:59 Intake Total 2611 Output Total 1750 3160 Balance 861 -3160 Intake: IV 2301 Blood Product 310 Rc As-1 Unit 310 [id number] Output: Drainage 160 Lower Back 160 Urine 750 3000 Uretheral (Hook) 1000 Estimated Blood Loss 1000 Other: Voiding Method Indwelling Catheter - Exam Physical Examination General: The patient is awake and alert, in no acute distress Skin: Skin is warm and dry with no obvious rashes or lesions. Hairy patches absent, no dorsal skin dimples, no cafe au lait spots. Surgical Incision in lumbar region with hemovac present to the right of the incision. Eye: Pupils are equal, round and reactive to light, extra-ocular movements are intact; there is normal conjunctiva bilaterally. Neck: The neck is supple, there is no tenderness and ROM intact. Cardiovascular: There is a regular rate and rhythm. No murmur, rub or gallop is appreciated. Respiratory: Lungs are clear to auscultation, respirations are non-labored, breath sounds are equal. Gastrointestinal: Soft, non-distended, non-tender abdomen . Back: There is tenderness to palpation paralumbar. There is no obvious deformity . Musculoskeletal: ROM limited secondary to pain and stiffness from surgical procedure. Shoulder abduction 5/5, elbow flexors 5/5, wrist dorsiflexors 5/5. finger abductor 5/5, manager site 5/5, hip flexor 4/5, knee flexor 4/5, ankle dorsiflexor 4/5, ankle plantarflexion 4/5 and extensor hallucis 4/5. Neurological: CN 2-12 intact. There are no obvious motor or sensory deficits. Movement and coordination equal and intact. Sensory exam to light touch intact C5-T1 and intact from L2-S1. Reflexes 2/4 in bilateral upper and lower extremities. Negative Hoffmans, babinski, and clonus signs. Psychiatric: Cooperative, appropriate mood & affect, normal judgment. - Labs CBC & Chem 7: 12/26/21 16:31 Labs: Abnormal Lab Results - Last 24 Hours (Table) 12/18/21 12/26/21 12/26/21 Range/Units 11:01 13:55 16:31 RBC 2.92 L 3.26 L (3.80-5.40) m/uL Hgb 9.5 L 10.5 L (11.4-16.0) gm/dL Hct 27.4 L 30.9 L (34.0-46.0) % Plt Count 110 L 143 L (150-450) k/uL Lymphocytes # 0.6 L 0.6 L (1.0-4.8) k/uL Crossmatch See Detail Assessment and Plan Assessment: Post Op Day 1: Revision L4-S1 decompression and fusion 1. S/P L5-S1 revision fusion 2.L4-L5 ASD with grade 1 spondylolisthesis 3. left lower extremity radiculopathy 4. lower extremity weakness Plan: Plan: -Appreciate development consultant and team management. -Activity: Ambulate QID, OOB all meals, up and about, limit lifting bending twisting to less than 5 lbs. Use walker or cane if needed for stability. -Daily PT/OT, increase ambulation strength and balance. -LSO Brace when up and about, not needed in bed or chair -Pain control: Adequate at this time -Meds: reviewed -GI ppx: senna, Miralax -DVT PPX: OK to restart Heparin tonight -Hygiene: Shower today. Maintain dressing clean and dry. Meticulous cleaning after BMs away from the incision site -Drains: Maintain for now. DC later today pending out put and PT -Encourage IS 10x/hr -Dispo: Anticipate discharge home tomorrow with homecare *I reviewed and discussed this case with my attending Dr. Davis, whom has reviewed this chart and films and is in agreement with assessment and plan of care as outlined above. I have personally seen and examined the patient, performed the documentation and the assessment and plan as written. Number of minutes spent on the visit: 20m. Time with Patient: Less than 30
[2021-12-27 09:12] LABS: Anion Gap 10.9 mmol/L (10.00-18.00); Blood Urea Nitrogen 9.1 mg/dL (9.0-27.0); Carbon Dioxide 25.1 mmol/L (20.0-27.5); Non-African American GFR(CKD) 97.5 (60.0-200.0)
[2021-12-27 11:10] LABS: Basophils # (A) 0.01 X 10*3/uL (0.00-0.10); Basophils % (A) 0.1 %; Eosinophils # (A) 0.02 X 10*3/uL (0.04-0.35); Eosinophils % (A) 0.2 %; HCT 27.9 % (37.2-46.3); HGB 9.5 g/dL (12.0-15.0); Immature Grans, Automated 0.4 %; Lymphocytes # (A) 0.54 X 10*3/uL (0.90-5.00); Lymphocytes % (A) 6.7 %; MCH 30.7 pg (27.0-32.0); MCHC 34.1 g/dL (32.0-37.0); MCV 90.3 fL (80.0-97.0); Mean Platelet Volume 12.2 fL (9.5-12.2); Monocytes % (A) 8.7 %; NRBC Per 100 WBC 0 /100 WBCS (0.0-0.0); Neutrophils # (A) 6.75 X 10*3/uL (1.80-7.70); Neutrophils % (A) 83.9 %; Platelet Count 132 X 10*3/uL (140-440); RBC 3.09 X 10*6/uL (4.10-5.20); RDW 13.2 % (11.5-14.5); WBC 8.05 X 10*3/uL (4.50-10.00)
--- NOTE | 2021-12-27 11:28 | P.PN ---
Subjective Progress Note Date: 12/27/21 Principal diagnosis: Lower back pain Patient was seen and examined. No acute events overnight. She is POD 1 revision of L4-S1 decompression and fusion. She reports significant improvement in her lower back pain since yesterday. Continues to complain of numbness and tingling of the left hand along the median nerve distribution. Objective - Vital Signs Vital signs: Vital Signs Temp 100.5 F H 12/27/21 08:00 Pulse 102 H 12/27/21 08:00 Resp 18 12/27/21 01:10 BP 106/69 12/27/21 08:00 Pulse Ox 95 12/27/21 08:00 Intake & Output 12/26/21 12/27/21 12/27/21 18:59 06:59 18:59 Intake Total 2611 Output Total 1750 3160 Balance 861 -3160 Intake: IV 2301 Blood Product 310 Rc As-1 Unit 310 [id number] Output: Drainage 160 Lower Back 160 Urine 750 3000 Uretheral (Hook) 1000 Estimated Blood Loss 1000 Other: Voiding Method Indwelling Catheter # Voids 1 - Exam General: [non toxic], [no distress], [appears at stated age] Derm: [warm], [dry] Head: [atraumatic], [normocephalic], [symmetric] Eyes: [EOMI], [no lid lag], [anicteric sclera] Mouth: [no lip lesion], [mucus membranes moist] Cardiovascular: [S1S2 reg], [no murmur], [positive DP pulse bilateral] Lungs: [CTA bilateral], [no rhonchi, no rales] , [no accessory muscle use] Abdominal: [soft], [ nontender to palpation], [no guarding], [no appreciable organomegaly] Ext: [no gross muscle atrophy], [no edema], [no contractures] Neuro: [no focal neuro deficits] Psych: [Alert], [oriented], [appropriate affect] - Labs CBC & Chem 7: 12/27/21 05:05 12/27/21 05:05 Labs: Abnormal Lab Results - Last 24 Hours (Table) 12/18/21 12/26/21 12/26/21 Range/Units 11:01 13:55 16:31 RBC 2.92 L 3.26 L (3.80-5.40) m/uL Hgb 9.5 L 10.5 L (11.4-16.0) gm/dL Hct 27.4 L 30.9 L (34.0-46.0) % Plt Count 110 L 143 L (150-450) k/uL Lymphocytes # 0.6 L 0.6 L (1.0-4.8) k/uL Eosinophils # (0.04-0.35) X 10*3/uL Glucose (70-110) mg/dL Crossmatch See Detail 12/27/21 12/27/21 Range/Units 05:05 05:05 RBC 3.09 L (3.80-5.40) m/uL Hgb 9.5 L (11.4-16.0) gm/dL Hct 27.9 L (34.0-46.0) % Plt Count 132 L (150-450) k/uL Lymphocytes # 0.54 L (1.0-4.8) k/uL Eosinophils # 0.02 L (0.04-0.35) X 10*3/uL Glucose 113 H (70-110) mg/dL Crossmatch Assessment and Plan Assessment: #Acute on chronic lower back pain #Status post revision of L4-S1 decompression and fusion #Normocytic anemia #Thrombocytopenia #Obesity Patient is admitted status post revision of L4-S1 decompression and fusion. Continued on Cefazolin. Pain control with Flexeril, Gabapentin, Dilaudid, Percocet as needed. Neurochecks ordered. Fall precautions in place. PT and OT is consulted to work with this patient. Patient would benefit from a structured weight loss program. DVT prophylaxis: [SCDs] Discussed with: [Patient] Anticipated discharge: [1-2 days] Anticipated discharge place: [Home] A total of [15] minutes was spent on the care of this complex patient more than 50% of the time was spent in counseling and care coordination. Patient names her the decision maker if she cant make decisions for herself. She would like to be FULL CODE. Plans for DC home tomorrow with home care. Thank you for this consult. Please call [facility] with any questions or concerns.
[2021-12-28] MEDS: ACETAMINOPHEN TAB 500 MG TAB PO SCH ×5 (00:05→23:04)
[2021-12-28] MEDS: HYDROmorphone 1 MG/ML 1 ML SYRINGE IVP PRN ×4 (01:31→17:41)
[2021-12-28] MEDS: CYCLOBENZAPRINE 5 MG TAB PO PRN ×2 (04:45→15:21)
[2021-12-28] MEDS: HYDROmorphone 0.5 MG/0.5 ML SYRINGE IVP PRN (05:53)
--- NOTE | 2021-12-28 08:00 | P.PN ---
Subjective Progress Note Date: 12/28/21 Principal diagnosis: Lumbar Spine spondylosis Patient seen and examined today at bedside. She is currently resting in bed, but does state she is ambulating independently with her walker to restroom. Patient denies any numbness tingling to bilateral lower extremities. Surgical incision is clean dry and intact. Hemovac present to the right of the incision, output of 100 mL overnight. Discussed with her that we will keep her another 24hrs due to drain output and to work with PT, Patient verbalizes understanding. Patient temp last night was 100.3F, encouraged IS and deep breathing exercises. Instructed patient to continue with nerve gliding exercises as well. Patient s tates she is urinating without difficulty, passing gas, no BM. She denies nausea/vomiting, and chest pain. Objective - Vital Signs Vital signs: Vital Signs Temp 99.3 F 12/28/21 01:50 Pulse 107 H 12/28/21 01:50 Resp 18 12/28/21 01:50 BP 109/67 12/28/21 01:50 Pulse Ox 97 12/28/21 01:50 Intake & Output 12/27/21 12/28/21 12/28/21 18:59 06:59 18:59 Output Total 250 Balance -250 Output: Drainage 250 Lower Back 250 Other: Voiding Method Toilet # Voids 1 - Exam Physical Examination General: The patient is awake and alert, in no acute distress Skin: Skin is warm and dry with no obvious rashes or lesions. Hairy patches absent, no dorsal skin dimples, no cafe au lait spots. Surgical Incision in lumbar region with hemovac present to the right of the incision. Eye: Pupils are equal, round and reactive to light, extra-ocular movements are intact; there is normal conjunctiva bilaterally. Neck: The neck is supple, there is no tenderness and ROM intact. Cardiovascular: There is a regular rate and rhythm. No murmur, rub or gallop is appreciated. Respiratory: Lungs are clear to auscultation, respirations are non-labored, breath sounds are equal. Gastrointestinal: Soft, non-distended, non-tender abdomen . Back: There is tenderness to palpation paralumbar. There is no obvious deformity . Musculoskeletal: ROM limited secondary to pain and stiffness from surgical procedure. Shoulder abduction 5/5, elbow flexors 5/5, wrist dorsiflexors 5/5. finger abductor 5/5, buckle stringer 5/5, hip flexor 4/5, knee flexor 4/5, ankle dorsiflexor 4/5, ankle plantarflexion 4/5 and extensor hallucis 4/5. Neurological: CN 2-12 intact. There are no obvious motor or sensory deficits. M ovement and coordination equal and intact. Sensory exam to light touch intact C5-T1 and intact from L2-S1. Reflexes 2/4 in bilateral upper and lower extremities. Negative Hoffmans, babinski, and clonus signs. Psychiatric: Cooperative, appropriate mood & affect, normal judgment. - Labs CBC & Chem 7: 12/27/21 05:05 12/27/21 05:05 Labs: Abnormal Lab Results - Last 24 Hours (Table) 12/18/21 12/27/21 12/27/21 Range/Units 11:01 05:05 05:05 RBC 3.09 L (4.10-5.20) X 10*6/uL Hgb 9.5 L (12.0-15.0) g/dL Hct 27.9 L (37.2-46.3) % Plt Count 132 L (140-440) X 10*3/uL Lymphocytes # 0.54 L (0.90-5.00) X 10*3/uL Eosinophils # 0.02 L (0.04-0.35) X 10*3/uL Glucose 113 H (70-110) mg/dL Crossmatch See Detail Assessment and Plan Assessment: Post Op Day 2: Revision L4-S1 decompression and fusion 1. S/P L5-S1 revision fusion 2.L4-L5 ASD with grade 1 spondylolisthesis 3. left lower extremity radiculopathy 4. lower extremity weakness Plan: Plan: -Appreciate universal branch consultant and team management. -Activity: Ambulate QID, OOB all meals, up and about, limit lifting bending twisting to less than 5 lbs. Use walker or cane if needed for stability. -Daily PT/OT, increase ambulation strength and balance. -LSO Brace when up and about, not needed in bed or chair -Pain control: Adequate at this time -Meds: reviewed -GI ppx: senna, Miralax -DVT PPX: OK to restart Heparin tonight -Hygiene: Shower today. Maintain dressing clean and dry. Meticulous cleaning after BMs away from the incision site -Drains: Maintain for now. DC later today pending out put and PT -Encourage IS 10x/hr -Dispo: Anticipate discharge home tomorrow with homecare *I reviewed and discussed this case with my attending Dr. Davis, whom has reviewed this chart and films and is in agreement with assessment and plan of care as outlined above. I have personally seen and examined the patient, performed the documentation and the assessment and plan as written. Number of minutes spent on the visit: 20m. Time with Patient: Less than 30
[2021-12-28] MEDS: PANTOPRAZOLE 40 MG TABLET PO SCH (09:18)
[2021-12-28] MEDS: GABAPENTIN 300 MG CAP PO SCH ×3 (09:18→19:32)
--- NOTE | 2021-12-28 11:11 | CDI ---
Documentation Clarification Form Date: 12/28/2021 10:58:32 AM From: Gilma Chaidez CCS, CCDS Admit Date: 12/26/2021 05:51:00 AM Patient Name: Petrona Arriaga Visit Number: [id number] Discharge Date: ATTENTION: The Clinical Documentation Specialists (CDI) and [facility] Coding Staff appreciate your assistance in clarifying documentation. Please respond to the clarification below the line at the bottom and electronically sign. The CDI & [facility] Coding staff will review the response and follow-up if needed. Please note: Queries are made part of the Legal Health Record. If you have any questions, please contact the author of this message via ITS. Dr. Patti Vences: Normocytic Anemia is documented in the 12/26 Medical Management Consult without further specificity. Additional specificity regarding the Type and Acuity of Anemia is requested. History/Risk Factors per the 12/26 Medical Management Consult: GERD, Stomach Ulcer, Internal Hemorrhoids, Back Pain status post surgery x2. Clinical indicators: Presented 12/26 for Elective Spinal Surgery: 12/26 Procedure Diagnosis: Status post L5-S1 Revision Fusion. L4-L5 ASD with Grade 1 Spondylolisthesis. Left lower extremity Radiculopathy. Lower extremity weakness. 12/26 Procedure: Revision posterior midline approach to the Lumbosacral Spine, Exploration of Fusion L5-S1. Removal of Hardware L5-S1. Combined interbody & posteriolateral Fusion L4-5 with Spondylolisthesis Reduction. Revision Posteriolateral Fusion L5-S1. Hemoglobin: 12/26: 9.5. 12/26: 10.5. 12/27: 9.5 Hematocrit: 12/26: 27.4. 12/26: 30.9. 12/27: 27.9 Treatment 12/26 pre-op: Fall precautions, Neurological Assessment, Diet: regular. O2 2Lnc, po Tylenol 1,000 mg x1, IV Cefazolin 50 mls @ 100 mls/hr x1, po Neurontin 300 mg x1, po Mobic 15 mg x1, IV Zofran 4 mg x1, IV Llactated Ringers 12/26 Postop: IV Dilaudid 0.5 mg x2, IV Cefazolin 50 mls @ 100 mls/hr q8H, po Neurontin 300 mg TID, po Oxycdone 10 mg q4H/prn, IV Tylenol 100 mls @ 400 mls/hr x1 12/26 Blood Transfusion: 1 Unit PRBCs. Home meds include: Percocet, OxyContin, Robaxin, protonix Please clarify the type and acuity of Anemia: [ ] Acute blood loss anemia [ ] Acute on chronic blood loss anemia [ ] Chronic blood loss anemia [ ] Hemolytic anemia [ ] Drug induced anemia [ ] Anemia of chronic disease [ ] Unable to determine [ ] Other, please specify (Template Last Revised: September 2020) Unable to determine MTDD
--- NOTE | 2021-12-28 12:53 | P.PN ---
Subjective Progress Note Date: 12/28/21 Principal diagnosis: Lower back pain Patient was seen and examined. No acute events overnight. She is POD 2 revision of L4-S1 decompression and fusion. She is complaining of worsening back pain and pain in the LLE after attempting to ambulate. Pain is 8/10 in severity. Objective - Vital Signs Vital signs: Vital Signs Temp 98.9 F 12/28/21 08:00 Pulse 89 12/28/21 08:00 Resp 14 12/28/21 09:19 BP 100/61 12/28/21 08:00 Pulse Ox 95 12/28/21 08:00 Intake & Output 12/27/21 12/28/21 12/28/21 18:59 06:59 18:59 Output Total 250 40 Balance -250 -40 Output: Drainage 250 40 Lower Back 250 40 Other: Voiding Method Toilet Toilet # Voids 1 - Exam General: [non toxic], [no distress], [appears at stated age] Derm: [warm], [dry] Head: [atraumatic], [normocephalic], [symmetric] Eyes: [EOMI], [no lid lag], [anicteric sclera] Mouth: [no lip lesion], [mucus membranes moist] Cardiovascular: [S1S2 reg], [no murmur], [positive DP pulse bilateral] Lungs: [CTA bilateral], [no rhonchi, no rales] , [no accessory muscle use] Abdominal: [soft], [ nontender to palpation], [no guarding], [no appreciable organomegaly] Ext: [no gross muscle atrophy], [no edema], [no contractures] Neuro: [no focal neuro deficits] Psych: [Alert], [oriented], [appropriate affect] - Labs CBC & Chem 7: 12/27/21 05:05 12/27/21 05:05 Labs: Abnormal Lab Results - Last 24 Hours (Table) 12/18/21 Range/Units 11:01 Crossmatch See Detail Assessment and Plan Assessment: #Acute on chronic lower back pain #Status post revision of L4-S1 decompression and fusion #Normocytic anemia #Thrombocytopenia #Obesity Patient is admitted status post revision of L4-S1 decompression and fusion. Continued on Cefazolin. Pain control with Flexeril, Gabapentin, Dilaudid, Percocet as needed. Neurochecks ordered. Fall precautions in place. PT and OT is consulted to work with this patient. Patient would benefit from a structured weight loss program. DVT prophylaxis: [SCDs] Discussed with: [Patient] Anticipated discharge: [1-2 days] Anticipated discharge place: [Home] A total of [15] minutes was spent on the care of this complex patient more than 50% of the time was spent in counseling and care coordination. Patient names her the decision maker if she cant make decisions for herself. She would like to be FULL CODE. Plans for DC home tomorrow with home care. Thank you for this consult. Please call [facility] with any questions or concerns.
[2021-12-28] MEDS: SODIUM CHLORIDE 0.9% 1,000 ML IV SCH ×2 (19:34→19:35)
[2021-12-29] MEDS: ACETAMINOPHEN TAB 500 MG TAB PO SCH ×2 (05:44→11:44)
[2021-12-29] MEDS: HYDROmorphone 0.5 MG/0.5 ML SYRINGE IVP PRN (05:44)
[2021-12-29] MEDS: PANTOPRAZOLE 40 MG TABLET PO SCH (07:09)
[2021-12-29] MEDS: GABAPENTIN 300 MG CAP PO SCH (07:09)
[2021-12-29 07:27] VITALS: BP 111/65; PULSE 73; RESP 18; TEMP 97.7
--- NOTE | 2021-12-29 08:32 | P.PN ---
Subjective Progress Note Date: 12/29/21 Patient seen and examined this morning she is doing fairly well today she denies any fevers chills shortness of breath or chest pain overnight states no new symptoms she still has some back pain but it seems to be getting better she has been up and about and moving around her room with assistance. She denies any other symptoms no peroneal numbness or tingling some mild left lower extremity radiculopathy however this seems to be getting better day by day. She denies any other symptoms at this time. Objective - Vital Signs Vital signs: Vital Signs Temp 97.7 F 12/29/21 07:26 Pulse 73 12/29/21 07:26 Resp 18 12/29/21 07:26 BP 111/65 12/29/21 07:26 Pulse Ox 96 12/29/21 07:26 Intake & Output 12/28/21 12/29/21 12/29/21 18:59 06:59 18:59 Intake Total 50 Output Total 110 Balance -60 Intake: Intake, IV Titration 50 Amount ceFAZolin 2 gm In Sodium 50 Chloride 0.9% 50 ml @ 100 mls/hr IVPB Q8H [facility] Rx#: [id number] Output: Drainage 110 Lower Back 110 Other: Voiding Method Toilet # Voids 2 # Bowel Movements 0 - Exam Patient is alert and oriented 3 appears well-nourished well-hydrated is in no acute distress. They do not appear septic. On exam the patient has no tenderness to palpation of her thoracic or lumbar spine. There is no edema or ballottement sign. Lower extremities with 4+/5 strength in all major muscle groups deconditioning and postoperative no focal deficits Upper extremities show [5]/5 strength in all major muscle groups. [] [2]/4DTR all UE and LE b/l Patient shows a negative Homans, Russell's, negative Babinski's negative clonus bilaterally. negative straight leg raise bilaterally. No tensioning signs. Cranial nerves II through XII are grossly intact. There is FROM that is painless of the b/l UE and LE in all major joints [w/o pain]. They are intact to light touch sensation in L2 to S1 nerve distribution. Patient has palpable dorsalis pedis was posterior tibial pulses. Compartments are soft and compressible. Incisions are clean and dry dressings are clean and dry drain is minimal output will be discontinued today - Labs CBC & Chem 7: 12/27/21 05:05 12/27/21 05:05 Assessment and Plan Assessment: 56-year-old female postoperative day 3 from revision L4-S1 decompression fusion Plan: -Appreciate senior analytic consultant and team management. -Activity: Ambulate QID, OOB all meals, up and about, limit lifting bending twisting to less than 5 lbs. Use walker or cane if needed for stability. -Daily PT/OT, increase ambulation strength and balance. -[Brace when up and about, not needed in bed or chair] -Pain control: [Adequate at this time] -Meds: [reviewed] -GI ppx: senna, Miralax -DVT PPX: Heparin teds early ambulation -Hygiene: Shower today. Maintain dressing clean and dry. Meticulous cleaning after BMs away from incision site -Drains: Discontinue drain today -Encourage IS 10x/hr -Dispo: Discharge planning for home today after drain is DC'd
[2021-12-29] MEDS: CYCLOBENZAPRINE 5 MG TAB PO PRN (09:09)
--- NOTE | 2021-12-29 11:13 | P.PN ---
Subjective Progress Note Date: 12/29/21 Principal diagnosis: Lower back pain Patient was seen and examined. No acute events overnight. She is POD 3 revision of L4-S1 decompression and fusion. Her pain has significantly improved since admission. Wanting to be discharged today. Objective - Vital Signs Vital signs: Vital Signs Temp 97.7 F 12/29/21 07:26 Pulse 73 12/29/21 07:26 Resp 18 12/29/21 07:26 BP 111/65 12/29/21 07:26 Pulse Ox 96 12/29/21 07:26 Intake & Output 12/28/21 12/29/21 12/29/21 18:59 06:59 18:59 Intake Total 50 Output Total 110 Balance -60 Intake: Intake, IV Titration 50 Amount ceFAZolin 2 gm In Sodium 50 Chloride 0.9% 50 ml @ 100 mls/hr IVPB Q8H [facility] Rx#: [id number] Output: Drainage 110 Lower Back 110 Other: Voiding Method Toilet Toilet # Voids 2 # Bowel Movements 0 - Exam General: [non toxic], [no distress], [appears at stated age] Derm: [warm], [dry] Head: [atraumatic], [normocephalic], [symmetric] Eyes: [EOMI], [no lid lag], [anicteric sclera] Mouth: [no lip lesion], [mucus membranes moist] Ext: [no gross muscle atrophy], [no edema], [no contractures] Neuro: [no focal neuro deficits] Psych: [Alert], [oriented], [appropriate affect] - Labs CBC & Chem 7: 12/27/21 05:05 12/27/21 05:05 Assessment and Plan Assessment: #Acute on chronic lower back pain #Status post revision of L4-S1 decompression and fusion #Normocytic anemia #Thrombocytopenia #Obesity Patient is admitted status post revision of L4-S1 decompression and fusion. Continued on Cefazolin. Pain control with Flexeril, Gabapentin, Dilaudid, Percocet as needed. Neurochecks ordered. Fall precautions in place. PT and OT is consulted to work with this patient. Patient would benefit from a structured weight loss program. DVT prophylaxis: [SCDs] Discussed with: [Patient] Anticipated discharge: [1-2 days] Anticipated discharge place: [Home] A total of [15] minutes was spent on the care of this complex patient more than 50% of the time was spent in counseling and care coordination. Patient names her the decision maker if she cant make decisions for herself. She would like to be FULL CODE. Plans for DC home tomorrow with home care today. She is medically cleared. Thank you for this consult. Please call [facility] with any questions or concerns.
--- NOTE | 2021-12-29 13:27 | P.DS ---
Providers Date of admission: 12/26/21 05:51 Expected date of discharge: 12/29/21 Attending physician: Fam Davis DO Consults: 12/26/21 12:36 Consult Physician Routine Consulting Provider: Kayla Yang Consult Reason/Comments: Medical Management Do you want consulting provider notified?: Yes Primary care physician: Jarod Moralez [facility] Course: Hospital Course: The patient was evaluated preoperatively and found to have the diagnosis of lumbar spondylosis. They underwent appropriate preoperative care and were willing to undergo the intended procedure. They underwent a successful revision L4 to S1 decompression and fusion, were recovered appropriately and sent to the floor. While on the floor they worked with physical therapy, occupational therapy and nursing to enhance their recovery experience. Their pain was well controlled through their stay and they were started on appropriate medications, DVT ppx modalities, activity and dietary needs. Daily labs were monitored closely, and transfusions were only used when necessary. Medicine as well as other consulting services have made their input and have helped with our team approach and multidisciplinary care. PT milestones have been met and passed and they have made the recommendation of home with home care for this patient and treating providers agree with this care path. The patient will be discharged home with appropriate medications, instructions and follow-up information and in stable condition. Patient Condition at Discharge: Good Plan - Discharge Summary Discharge Rx Participant: Yes New Discharge Prescriptions: New Gabapentin [Neurontin] 300 mg PO TID 21 Days #42 cap No Action methocarbamoL [Robaxin] 500 mg PO BID Pantoprazole [Protonix] 40 mg PO DAILY oxyCODONE-APAP 10-325MG [Percocet 10-325 mg] 1 tab PO BID PRN PRN Reason: Pain oxyCODONE HCL [OxyCONTIN] 20 mg PO Q12H Discharge Medication List Pantoprazole [Protonix] 40 mg PO DAILY 12/25/21 [History] methocarbamoL [Robaxin] 500 mg PO BID 12/25/21 [History] oxyCODONE HCL [OxyCONTIN] 20 mg PO Q12H 12/25/21 [History] oxyCODONE-APAP 10-325MG [Percocet 10-325 mg] 1 tab PO BID PRN 12/25/21 [History] Gabapentin [Neurontin] 300 mg PO TID 21 Days #42 cap 12/29/21 [Rx] Follow up Appointment(s)/Referral(s): Danyel &Dann [NON-STAFF] - As Needed (LSO back brace) Fam Davis DO [Doctor of Osteopathic Medicine] - 2 Weeks Activity/Diet/Wound Care/Special Instructions: Spine Discharge and Recovery Instructions Date of Surgery: 12/26/2021 Diagnosis: Lumbar spondylosis Procedure: Revision L4 to S1 decompression and fusion Medications: See medication list All medication refills should be obtained through your primary care doctor or your clinic spine surgeon. Please discuss prescription refills at your follow up appointment. Do not call the hospital for medication refills. Dressing: Leave your dressing in place for a total of 5 days post operatively. Then you may remove your dressing and leave open to air. Keep the area clean and if not able to keep area clean, then cover with sterile gauze and tape. Showering: You may shower 3 days after your procedure allowing soap and water to run over incision. Do not scrub. Do not soak. Blot dry. Follow up: Please confirm a follow up appointment with your surgeon 3 weeks post operatively. Please make an appointment to follow up with your PCP in 1-2 weeks after surgery for evaluation 3 phase, 3-week plan POST OP WEEKS 1-3 1. Lifting/carrying/pushing/pulling limited to less than 5 pounds. 2. Do not sit for longer than 15 minutes at one time. Get up and walk around. Prolonged sitting is NOT advised. If you lay down, see if you can tolerate laying down on you front (belly side) 3. Walk for periods of 15 minutes = 1 mile but no longer; do it multiple times times each day. 4. Ice your low back after activity. POST OP WEEKS 3-6 1. Lifting limited to less than 20 pounds. 2. Do not sit for longer than 30 minutes at a time. Frequently change positions. Use a sit-to stand workstation or take frequent breaks from sitting if you have returned to work. 3. Walk for 30 minutes each day. If possible, do these three or more times a day POST OP WEEKS 6+ At your 6-week appointment we will give you a physical therapy referral to focus on a core stabilization and strengthening program. You should also work on leg & buttock strengthening, hamstring & quadriceps stretching, and continue a low impact aerobic activity program such as swimming, walking, or riding a stationary bicycle. During the initial 6 weeks after your surgery, you are at the highest risk of re-injuring your spine. You should generally avoid BLTs (bending, lifting and twisting combination motions) and follow the above guidelines to reduce the chance of reinjury. You can anticipate post op appointments in our office at approximately 3 weeks and 6 weeks after your surgery. INCISION CARE: If your incision is not draining you do NOT need to cover it with a dressing. Keep your incision clean, dry and intact. In most cases, we apply skin glue, elijah or sutures to the incision at the time of surgery. This will be like a crust or have the appearance of a scab and will fall off in time on its own. The stitches or elijah need to be removed at 3 weeks post op appointment. You may begin to shower 3 days after surgery (this allows the glue to holliday well). However, please avoid scrubbing the incision site or peeling off any of the skin glue. This will ensure optimal healing of your incision. Also, during this time avoid soaking the incision area in water - this includes swimming pools, hot tubs or baths. No ointments, lotions or oils on the incision until your surgeon allows. Leave elijah, sutures or glue in place. Neurological dysfunction that comes on suddenly can also be a sign of a stroke. Below some common symptoms of a stroke are listed: B - balance difficulty such as sudden onset walking or leaning to one side - NEW E - eye problem such as sudden double vision or trouble seeing on one side - NEW F - Facial weakness or numbness on one side - NEW A - Arm or leg weakness or numbness on one side - NEW S - Slurred speech or difficulty with word finding - NEW T - Time is BRAIN! Call 911 as soon as you recognize these symptoms Diet: Consume a regular diet rich in vegetables and lean protein such as chicken or fish. You should consume in a ratio of approximately 20% fats|40% carbohydrates|40%protein. Vegetables, sweet potatoes, brown rice or quinoa are examples of good carbohydrates. Chips, white bread, cookies and sweets/sugar are examples of bad carbohydrates. Limit your bad carbs, go wild with good carbs. "Life's Simple 7" Guidelines as per [employer] These will help you reclaim your life after surgery and cook helper meat in your recovery, keeping in mind your restrictions. (1) Get Active. Physical activity can help people lose weight, control high blood pressure and cholesterol, feel emotionally better, and sleep better. (2) Control Cholesterol. Avoid a diet high in saturated fat, trans fat, & cholesterol. Limit whole milk & cream, ice cream, butter, egg yolks, processed meats (like sausage and hot dogs), and fatty meats. Choose healthy foods that are low in saturated fat, trans fat and cholesterol which include: Fruits and vegetables, fiber rich grain products (like whole grain pasta and brown rice), lean meat such as chicken, fish, nuts, seeds, and legumes. (3) Eat Better. Eat small portions. Shop at the grocery with a list and do not stray from it. Tips for a healthy diet include: Limit sodium intake to less than 1500mg daily, avoid prepackaged, processed, and fast foods, choose a diet rich in fruits, vegetables, and whole grain, high fiber foods, and limit saturated & cholesterol in your diet. (4) Manage Blood Pressure. If you have high blood pressure, you should have a cuff at home so that you can check your blood pressure regularly. Be sure you have a good cuff. An arm one is generally better than a wrist one. Bring the cuff to a doctor's appointment to validate that the measurements that your cuff are taking are accurate. Take your blood pressure twice daily when you are sitting down and relaxing. Record the numbers in a log and bring this log with you to your doctors' appointments. (5) Lose Weight if your BMI is above 25. A healthy BMI is between 19-25. To calculate Your BMI, you may use a Standard BMI Calculator on the NIH BMI website: <www.nhlbi.nih.gov/guidelines/obesity/BMI/bmicalc.htm>. Weigh oneself daily. If you are overweight, set a goal to lose weight. A pound a week loss if needed is a good target. (6) Reduce Blood Sugar. Limit foods and liquids with "added sugars." (Added sugars include sucrose, fructose, glucose, maltose, dextrose, high fructose corn syrup, corn syrup, concentrated fruit juice and honey). (7) Stop Smoking. If you smoke, quitting smoking is one of the best things that you can do for your health. Smoking increases your risk of heart attack, stroke, and peripheral vascular disease, which is a build-up of plaque in your arteries. Please discard all the cigarettes and lighters in your house. Have a plan for what you will do when you have the urge to smoke. Direct and second- hand smoke shortens your life as well as the lives of your family, friends and others around you. For your health and the health of those around you, please consider quitting! Proper Bending Body Mechanics: Maintain a wide stance with one foot slightly in front of the other. Keep your back straight. Bend utilizing the strength in your hips and knees. Do not bend at the waist. Maintain the lifted object at your waist-level close to your body. Avoid lifting weight that causes immediately pain or pain anywhere in the body afterwards. Smoking/Nicotine If there was ever one thing that you could do to increase your overall health, decrease your risk of cardiovascular problems by about 39% the second you make the choice, it is to STOP SMOKING. Your body's most instant gratification is the second you stop smoking. We have all heard the studies, read the articles but it is true, smoking is extremely bad for your overall health, and moreover it is detrimental to your bone health. Nicotine, IN ANY FORM, kills bone cells, prevents your body from healing fractures, and significantly prolongs healing after surgery. In spine surgery specifically, it increases your risk of not healing your bones to create a fusion and increases your risk of having a revision surgery due to this up to 60%. I know it is hard. I know it feels impossible. But there are ways. Take control of your life. We are here to help you through it. And when you are ready, ask us and we can direct you to help if you desire. Use the START Plan to Quit Smoking (please visit the Helpguide.org website listed below for more information): S = Set a quit date. Choose a date within the next 2 weeks, so you have enough time to prepare without losing your motivation to quit. If you mainly smoke at work, quit on the weekend, so you have a few days to adjust to the change. T = Tell family, friends, and co-workers that you plan to quit. Let your friends and family in on your plan to quit smoking and tell them you need their support and encouragement to stop. Look for a quit maya who wants to stop smoking as well. You can help each other get through the rough times. A = Anticipate and plan for the challenges you'll face while quitting. Most people who begin smoking again do so within the first 3 months. You can help yourself make it through by preparing ahead for common challenges, such as nicotine withdrawal and cigarette cravings. R = Remove cigarettes and other tobacco products from your home, car, and work. Throw away all your cigarettes (no emergency pack!), lighters, ashtrays, and matches. Wash your clothes and freshen up anything that smells like smoke. Shampoo your car, clean your drapes and carpet, and steam your furniture. T = Talk to your doctor about getting help to quit. Your doctor can prescribe medication to help with withdrawal and suggest other alternatives. If you can't see a doctor, you can get many products over the counter at your local pharmacy or grocery store, including the nicotine patch, nicotine lozenges, and nicotine gum. Resources for Quitting Smoking: <https://www.[facility].gov/documents/[facility]/Quit_Tobacco_Resources_for_patients_313480_7.pdf> Supplementation: Take recommended dosages of Vitamin D and Calcium to help fortify your bones and help them to heal. See your health maintenance packet for dosages and recommended levels. DVT/VTE prophylaxis: You will be given compression stockings from the hospital. Wear these daily for the first two weeks after surgery. You may take them off at night. You may be prescribed a medication to help thin your blood. Take this as directed. If you are not prescribed this medication, early and frequent ambulation has been shown to be the best prophylaxis to deep vein thrombosis and sequelae related to this event. Discharge Disposition: HOME WITH HOME HEALTH SERVICES
== END 2021-12-29 15:35 | disposition home health service (06) | DRG 455 ==
LOC: 2ORMAIN 12-26 05:51 → 4SSUR 12-26 15:17
PROVIDERS: ADMIT Orthopaedic Surgery; ATTEND Orthopaedic Surgery
PROC: 0SG3071 Fusion of Lumbosacral Joint with Autologous Tissue Substitute, Posterior Approach, Posterior Column, Open Approach (ICD-10-PCS; principal; 2021-12-26 07:30)
PROC: 0SB20ZZ Excision of Lumbar Vertebral Disc, Open Approach (ICD-10-PCS; principal; 2021-12-26 07:30)
PROC: 01NB0ZZ Release Lumbar Nerve, Open Approach (ICD-10-PCS; principal; 2021-12-26 07:30)
PROC: 0SG00AJ Fusion of Lumbar Vertebral Joint with Interbody Fusion Device, Posterior Approach, Anterior Column, Open Approach (ICD-10-PCS; principal; 2021-12-26 07:30)
PROC: 4A11X4G Monitoring of Peripheral Nervous Electrical Activity, Intraoperative, External Approach (ICD-10-PCS; principal; 2021-12-26 07:30)
PROC: 0SG0071 Fusion of Lumbar Vertebral Joint with Autologous Tissue Substitute, Posterior Approach, Posterior Column, Open Approach (ICD-10-PCS; principal; 2021-12-26 07:30)
PROC: 01NR0ZZ Release Sacral Nerve, Open Approach (ICD-10-PCS; principal; 2021-12-26 07:30)
DX: M43.16 Spondylolisthesis, lumbar region (principal); M48.061 Spinal stenosis, lumbar region without neurogenic claudication; E66.9 Obesity, unspecified; Z68.24 Body mass index [BMI] 24.0-24.9, adult; M47.26 Other spondylosis with radiculopathy, lumbar region; D64.9 Anemia, unspecified; D69.6 Thrombocytopenia, unspecified; G89.29 Other chronic pain; Z87.11 Personal history of peptic ulcer disease; Z79.899 Other long term (current) drug therapy; Z80.0 Family history of malignant neoplasm of digestive organs; Z82.49 Family history of ischemic heart disease and other diseases of the circulatory system; Z83.3 Family history of diabetes mellitus; Z90.710 Acquired absence of both cervix and uterus; Z88.2 Allergy status to sulfonamides; Z88.8 Allergy status to other drugs, medicaments and biological substances
CPT/HCPCS: 36430; 72100; 72131; 80048; 85025; 86850; 86870; 86880; 86900; 86901; 86902; 86920

== ENCOUNTER → 2021-12-18 | Outpatient (CLI) | payer BC ==
[2021-12-18 14:27] LABS: HCT 34.4 % (37.2-46.3); HGB 11.5 g/dL (12.0-15.0); MCH 31.1 pg (27.0-32.0); MCHC 33.4 g/dL (32.0-37.0); Mean Platelet Volume 12.9 fL (9.5-12.2); NRBC Per 100 WBC 0 /100 WBCS (0.0-0.0); Platelet Count 195 X 10*3/uL (140-440); RDW 12.5 % (11.5-14.5); WBC 5.79 X 10*3/uL (4.50-10.00)
[2021-12-18 14:44] LABS: INR 0.94 (0.90-1.11); Prothrombin Time 10.7 sec (9.9-11.9)
[2021-12-18 14:51] LABS: African American GFR (CKD) 101.2 (60.0-200.0); BUN/Creat Ratio 16.43 Ratio (12.00-20.00); Blood Urea Nitrogen 12.6 mg/dL (9.0-27.0); Calcium 9.1 mg/dL (8.7-10.3); Carbon Dioxide 28.1 mmol/L (20.0-27.5); Chloride 102 mmol/L (96-109); Glucose 86 mg/dL (70-110); Non-African American GFR(CKD) 87.3 (60.0-200.0); Potassium 4.3 mmol/L (3.5-5.5); Sodium 139 mmol/L (135-145)
[2021-12-18 14:52] LABS: Rheumatoid Factor, Qnt <10 IU/mL (0-15)
[2021-12-18 17:47] LABS: Erythrocyte Sedimentation Rate 6 mm/Hr (0-30)
[2021-12-18 18:49] LABS: Cyclic Citrull Pep IgG Unit <0.5 U/mL; Cyclic Citrullinated Pep IgG NEGATIVE (NEGATIVE)
== END | disposition home or self-care (01) ==
LOC: LABPAT 10:27
PROVIDERS: ATTEND Orthopaedic Surgery
DX: Z01.812 Encounter for preprocedural laboratory examination (principal); E55.9 Vitamin D deficiency, unspecified; M25.50 Pain in unspecified joint
CPT/HCPCS: 80048; 82306; 84443; 85027; 85610; 85652; 86200; 86431; 87070

== ENCOUNTER → 2022-02-07 | Outpatient (CLI) | payer BC ==
[2022-02-07 14:26] LABS: Basophils # (A) 0.04 X 10*3/uL (0.00-0.10); Basophils % (A) 0.8 %; Eosinophils # (A) 0.04 X 10*3/uL (0.04-0.35); Eosinophils % (A) 0.8 %; HCT 32.7 % (37.2-46.3); HGB 10.6 g/dL (12.0-15.0); Immature Grans, Automated 0.2 %; Lymphocytes # (A) 1.03 X 10*3/uL (0.90-5.00); Lymphocytes % (A) 21.6 %; MCH 30.5 pg (27.0-32.0); MCHC 32.4 g/dL (32.0-37.0); Mean Platelet Volume 11.7 fL (9.5-12.2); Monocytes # (A) 0.44 X 10*3/uL (0.20-1.00); Monocytes % (A) 9.2 %; NRBC Per 100 WBC 0 /100 WBCS (0.0-0.0); Neutrophils % (A) 67.4 %; Platelet Count 293 X 10*3/uL (140-440); RBC 3.48 X 10*6/uL (4.10-5.20); RDW 14.2 % (11.5-14.5); WBC 4.76 X 10*3/uL (4.50-10.00)
[2022-02-07 14:42] LABS: Anion Gap 14.1 mmol/L (10.00-18.00); Carbon Dioxide 23.5 mmol/L (20.0-27.5); Potassium 3.8 mmol/L (3.5-5.5)
[2022-02-08 14:32] LABS: % Iron Saturation 13.1 (12.00-45.00)
== END | disposition home or self-care (01) ==
LOC: LABPAT 09:03
PROVIDERS: ATTEND Orthopaedic Surgery Hand Surgery
DX: Z01.812 Encounter for preprocedural laboratory examination (principal); G56.02 Carpal tunnel syndrome, left upper limb
CPT/HCPCS: 36415; 80051; 83540; 83550; 85025

== ENCOUNTER 2022-02-21 09:43 | Day surgery (SDC) | payer BC ==
[2022-02-16 11:07] VITALS: BMI 24.7
--- NOTE | 2022-02-20 11:10 | P.HPOR ---
History of Present Illness H&P Date: 02/20/22 Chief Complaint: Left carpal tunnel syndrome Subjective: This is a 56 year old female that presents today for initial evaluation regarding a longstanding history of left thumb, index and middle finger paresthesias that have been worsening over the past several months. She recently had revision lumbar surgery on 12/26/21 and has been recovering well. She had intermittent numbness and tingling in the had but over the past several months her symptoms are now constant. She denies any recent injury, and states she thinks she may have fractured the wrist as a child but has had no pain or residual deficits since the injury 50 years ago. Physical Examination: LUE: AIN/PIN/Radial/Ulnar/Median motor intact. Radial/Ulnar/Median SILT. 2+/4 Radial/Ulnar pulses palpated. 5/5 APB, 5/5 FDI. Negative Finkelsteins, negative CMC grind, positive Durkan's compression. Wrist F/E 85/85. Impression: 1.) Left carpal tunnel syndrome Plan: Diagnosis and treatment options were discussed with the patient. Due to her worsening symptoms and her now constant paresthesias we discussed surgical intervention and she wishes to pursue surgery. Risks and benefit of surgery including bleeding, infection, damage to surrounding tissue, need for further surgery, possible need to convert to open procedure, residual numbness were discussed and the patient wished to go forward with surgery for a left endoscopic vs open carpal tunnel release. -Ezekiel Heath DO Orthopedic Hand/Upper Extremity Surgeon Past Medical History Past Medical History: Fibromyalgia, GERD/Reflux Additional Past Medical History / Comment(s): hx stomach ulcer, internal hemorrhoids., back pain, hx migraines, anemia History of Any Multi-Drug Resistant Organisms: None Reported Past Surgical History: Back Surgery, Section, Hysterectomy, Orthopedic Surgery Additional Past Surgical History / Comment(s): back surgery x3, neck surgery, left rotator cuff, 9 arthroscopic knee surgeries, several abdominal surgeries for endometriosis. 12/26/21 L1-L4 revision/fusion Past Anesthesia/Blood Transfusion Reactions: Postoperative Nausea & Vomiting (PONV) Additional Past Anesthesia/Blood Transfusion Reaction / Comment(s): severe ponv Smoking Status: Never smoker - Past Family History Brother(s) Family Medical History: Cancer Additional Family Medical History / Comment(s): colon cancer Medications and Allergies Home Medications Medication Instructions Recorded Confirmed Type Pantoprazole [Protonix] 40 mg PO DAILY 12/25/21 02/16/22 History methocarbamoL [Robaxin] 500 mg PO BID 12/25/21 02/16/22 History oxyCODONE HCL [OxyCONTIN] 20 mg PO Q12H 12/25/21 02/16/22 History Ferrous Sulfate [Feosol] 325 mg PO DAILY 02/16/22 02/16/22 History Allergies Allergy/AdvReac Type Severity Reaction Status Date / Time Sulfa (Sulfonamide Allergy Unknown Rash/Hives, Verified 02/16/22 11:00 Antibiotics) Dyspnea metoclopramide [From Reglan] Allergy Rash/Hives, Verified 02/16/22 11:00 anxiety, skin crawling prochlorperazine Allergy Rash/Hives, Verified 02/16/22 11:00 [From Compazine] anxiety, skin crawling Physical Examination Osteopathic Statement: *. No significant issues noted on an osteopathic structural exam other than those noted in the History and Physical/Consult.
[~2022-02-21 09:43] MED LIST: DEXAMETHASONE SOD PHOSPHATE 4 MG/ML 1 ML VIAL IV ONE; HYDROmorphone 0.5 MG/0.5 ML SYRINGE IVP PRN; LACTATED RINGERS 1,000 ML IV SCH; MIDAZOLAM 2 MG/2 ML VIAL IV PRN; ONDANSETRON 4 MG/2 ML VIAL IVP ONE; Pre Op ABX Message 1 EACH MISC MISCELLANE ONE; SCOPOLAMINE 1 MG/72 HR PATCH TRANSDERM ONE
[2022-02-21 10:01] VITALS: TEMP 97.4
[2022-02-21] MEDS ORDERED: PROPOFOL 10 MG/ML 20 ML VIAL IV ONE (10:15)
[2022-02-21] MEDS ORDERED: fentaNYL (PF) 50 MCG/ML 2 ML AMP ONE (10:15)
[2022-02-21] MEDS ORDERED: LIDOCAINE 2% INJ 20 MG/ML (2 ML VIAL) ONE (10:15)
[2022-02-21] MEDS ORDERED: MIDAZOLAM 2 MG/2 ML VIAL ONE (10:15)
[2022-02-21] MEDS ORDERED: BUPIVACAINE (PF) 0.5% 30 ML VIAL SQ ONE ×2 (10:23→10:26)
[2022-02-21] MEDS ORDERED: LIDOCAINE 1% INJ 10MG/ML (20 ML MDV) SQ ONE ×2 (10:23→10:26)
[2022-02-21 11:31] VITALS: BP 116/70; PULSE 74; RESP 20
--- NOTE | 2022-02-21 13:36 | P.OP ---
Date of Procedure: 02/21/22 Preoperative Diagnosis: Left carpal tunnel syndrome Postoperative Diagnosis: Left carpal tunnel syndrome Procedure(s) Performed: Left endoscopic carpal tunnel release Anesthesia: MAC Surgeon: Ezekiel Heath Program Director/Morning Show Host #1: Jose Arnold Estimated Blood Loss (ml): 0 Pathology: none sent Condition: stable Disposition: PACU Description of Procedure: This is a 56 year old female who presents today for a left endoscopic carpal tunnel release after having failed conservative treatment in the past. Risks and benefits of surgery were discussed with the patient including bleeding, damage to surrounding tissue, infection, need to convert to open procedure, need for further surgery as well as risks of anesthesia including pulmonary embolism and even and the patient wished to proceed with surgical intervention. The patients was seen in the pre-operative area by myself. Consent and H&P were completed and updated. The correct extremity was marked in the pre-operative area by myself and all other questions were answered. Operative Narrative: The patient was brought to the operating room by the department of anesthesia. They remained on the portable stretcher and a rolling hand table was brought to the side of the operative extremity. Pre-operative time out was performed indicating the correct patient, procedure and laterality. All in the room agreed. The patient was then drifted off to sleep by the department of anesthesia. MAC anesthesia was utilized and a 50:50 mixture of 1% Lidocaine and 0.5% bupivacaine was injected into the subcutaneous tissues of the palmar skin, 6ccs total. A nonsterile tourniquet was then applied to the operative extremity and the left upper extremity was then prepped and draped in normal sterile fashion. The operative extremity was the exsanguinated with an esmarch bandage and the tourniquet was inflated to 250mmHg. 15 blade scalpel was utilized to make a transverse incision on the palmar skin just ulnar to the palmaris longus tendon at the level of the distal wrist crease. Ragnell retractor was then placed radially and blunt dissection was performed to reveal the distal forearm fascia. This was lifted with fine Amado pick ups and Littler tenotomy scissors were then used to open the forearm fascia transversely and a double skin hook was then placed. Hamate finder was placed into the carpal tunnel and then sequential sized dilators were inserted followed by the synovial elevator to separate the flexor tenosynovium from the undersurface of the transverse carpal ligament and a washboard texture was felt. The MicroAire endoscopic carpal tunnel release system gun was the then inserted into the carpal tunnel hugging the deep portion of the transverse carpal ligament in line with the base of the ring finger. Transverse fibers of the ligament were directly visualized. Pressure was applied on the palm to reveal the distal extent of the transverse carpal ligament. The blade was then deployed and the distal half of the transverse carpal ligament was released. The scope was then brought distal again and remaining transverse fibers were incised with the blade. The proximal half of the transverse carpal ligament was then divided and again the scope was advanced distal and remaining transverse fibers were incised with the blade. The radial and ulnar leaflets were directly visualized and mobile consistent with complete release. Tenotomy scissors were then util ized to release the remaining distal forearm fascia under direct visualization taking care to preserve the palmar cutaneous branch of the median nerve. Skin closure was performed with interrupted 4-0 Monocryl suture followed by Mastisol and steri strips. Sterile dressing was applied consisting of adaptic, 4x4s, Webril, and an dali bandage. Tourniquet was let down and the hand immediately was well perfused. The patient was then woken by the department of anesthesia and transferred to PACU in stable condition. Jose LUTZ was present for the case in its entirety and assisted in major portions of the case and protection of vital neurovascular structures. Ezekiel Heath D.O. Orthopedic Hand/Upper Extremity Surgeon
== END 2022-02-21 11:20 | disposition home or self-care (01) ==
LOC: OR 09:43
PROVIDERS: ATTEND Orthopaedic Surgery Hand Surgery
DX: G56.02 Carpal tunnel syndrome, left upper limb (principal); M79.7 Fibromyalgia; K21.9 Gastro-esophageal reflux disease without esophagitis; Z87.11 Personal history of peptic ulcer disease; M54.9 Dorsalgia, unspecified; G43.909 Migraine, unspecified, not intractable, without status migrainosus; D64.9 Anemia, unspecified; Z98.891 History of uterine scar from previous surgery; Z90.710 Acquired absence of both cervix and uterus; Z98.1 Arthrodesis status; Z98.890 Other specified postprocedural states; Z80.0 Family history of malignant neoplasm of digestive organs; Z79.891 Long term (current) use of opiate analgesic; Z79.899 Other long term (current) drug therapy; Z88.2 Allergy status to sulfonamides; Z88.8 Allergy status to other drugs, medicaments and biological substances
CPT/HCPCS: 29848; J2250; J1100; J2405; J2001 ×2; J3010; J2704

== ENCOUNTER → 2022-03-09 | Outpatient (CLI) | payer BC ==
--- NOTE | 2022-03-10 16:17 | MR ---
EXAMINATION TYPE: MR cervical spine wo con DATE OF EXAM: 03/09/2022 INDICATION: Patient age:Female; 56 years old; Reason for study: M54.2 CERVICALGIA; COMPARISON: None. TECHNIQUE: Multi planar, multi sequence imaging was performed utilizing: T1-weighted, T2-weighted, an d turbo inversion recovery imaging of the cervical spine. No Gadolinium was given. FINDINGS: Alignment: The cervical vertebral bodies have preserved heights. Alignment is within normal limits gi marah patient positioning. Bones: T2 vertebral body hemangioma. Multilevel degenerative disc disease is noted and most pronounce d at the C5-6 and C6-C7 vertebral levels. Fixation hardware noted at C5-C6. Cord: The spinal cord is unremarkable with regards to their signal intensity and morphology. Discs: Multilevel disc desiccation is present. C2-C3: No significant disc pathology. The spinal canal is patent. Bilateral facet and uncovertebral joint arthropathy are present with moderate right and mild left neural foraminal stenosis. C3-C4: No significant disc pathology. The spinal canal is patent. No neural foraminal stenosis. C4-C5: A disc osteophyte complex is present with mild spinal canal stenosis. No neural foraminal fina nosis. C5-C6: No significant disc pathology. The spinal canal is patent. No neural foraminal stenosis. C6-C7: A disc osteophyte complex is present with mild spinal canal stenosis. No neural foraminal fina nosis. C7-T1: No significant disc pathology. The spinal canal is patent. No neural foraminal stenosis. Other: None. IMPRESSION: 1. No evidence for disc herniation or significant spinal canal stenosis. 2. Multilevel disc degeneration with associated osteoarthritic changes with mild spinal canal stenosi s at C4-C5 and C6-C7.
== END | disposition home or self-care (01) ==
LOC: RADMRIMAIN 07:51
PROVIDERS: ATTEND Internal Medicine
DX: M50.322 Other cervical disc degeneration at C5-C6 level (principal); M99.71 Connective tissue and disc stenosis of intervertebral foramina of cervical region
CPT/HCPCS: 72141

== ENCOUNTER 2022-03-12 16:47 | Emergency (ER) | payer BC ==
[2022-03-12 17:20] VITALS: RESP 18; TEMP 98.1
[2022-03-12] MEDS ORDERED: KETOROLAC 15 MG/ML 1 ML VIAL IVP STA (18:09)
[2022-03-12] MEDS ORDERED: SODIUM CHLORIDE 0.9% 1,000 ML IV STA ×2 (18:09)
[2022-03-12] MEDS ORDERED: ONDANSETRON 4 MG/2 ML VIAL IVP STA (18:09)
--- NOTE | 2022-03-12 18:14 | ED ---
Abdominal Pain HPI - General Chief Complaint: Abdominal Pain Stated Complaint: Headache/nausea/abd pain Time Seen by Provider: 03/12/22 18:01 Source: patient Mode of arrival: ambulatory Limitations: no limitations - History of Present Illness Initial Comments: This 56-year-old female presents with a complaint of some right upper abdominal pain and right flank pain. She states that it just occurred this past evening. She states that it is fairly severe in nature. She has been nauseated and took some Zofran at home for this. She also complains of some urinary frequency. She states that she urinated approximately 12 times over the night here and she denies any dysuria but does notice a malodorous scent. There is no hematuria but there is some urgency. She does have a history of previous urinary tract infections and a remote history of pyelonephritis. She states that she has had kidney stones all times the past. She denies any diarrhea or constipation. She has had some chills but no fevers. She also complains of a diffuse headache o martha the past 3 days. She states that she has had back surgery in the past. She also has some tightness in the muscles in her neck and think it may be related to this. She has tried some Tylenol, Motrin, and her home Percocet for her pain syndromes without relief. No other complaints or modifying factors. She does relate a history of previous cholecystectomy. - Related Data Home Medications Medication Instructions Recorded Confirmed Pantoprazole [Protonix] 40 mg PO DAILY 12/25/21 02/16/22 Ferrous Sulfate [Feosol] 325 mg PO DAILY 02/16/22 02/16/22 oxyCODONE ER [OxyCONTIN] 20 mg PO BID 03/12/22 03/12/22 oxyCODONE-APAP 10-325MG [Percocet 1 tab PO BID 03/12/22 03/12/22 10-325 mg] tiZANidine HCL 4 mg PO TID PRN 03/12/22 03/12/22 Previous Rx's Medication Instructions Recorded Ibuprofen [Motrin] 800 mg PO Q8H PRN #20 tab 03/12/22 Tamsulosin [Flomax] 0.4 mg PO DAILY #15 cap 03/12/22 Allergies Allergy/AdvReac Type Severity Reaction Status Date / Time Sulfa (Sulfonamide Allergy Unknown Rash/Hives, Verified 03/12/22 17:20 Antibiotics) Dyspnea metoclopramide [From Reglan] Allergy Rash/Hives, Verified 03/12/22 17:20 anxiety, skin crawling prochlorperazine Allergy Rash/Hives, Verified 03/12/22 17:20 [From Compazine] anxiety, skin crawling Review of Systems ROS Statement: Those systems with pertinent positive or pertinent negative responses have been documented in the HPI. ROS Other: All systems not noted in ROS Statement are negative. Past Medical History Past Medical History: GERD/Reflux Additional Past Medical History / Comment(s): hx stomach ulcer, internal hemorrhoids., back pain History of Any Multi-Drug Resistant Organisms: None Reported Past Surgical History: Back Surgery, Section, Hysterectomy, Orthopedic Surgery Additional Past Surgical History / Comment(s): back surgery x2, neck surgery, left rotator cuff, 9 arthroscopic knee surgeries, several abdominal surgeries for endometriosis. Past Anesthesia/Blood Transfusion Reactions: Postoperative Nausea & Vomiting (PONV) Additional Past Anesthesia/Blood Transfusion Reaction / Comment(s): severe ponv Past Psychological History: No Psychological Hx Reported Smoking Status: Never smoker - Past Family History Brother(s) Family Medical History: Cancer Additional Family Medical History / Comment(s): colon cancer General Exam - General Exam Comments Initial Comments: GENERAL: The patient is well nourished and well hydrated. VITAL SIGNS: Heart rate, blood pressure, respiratory rate reviewed as recorded in nurse's notes. EYES: Pupils are round and reactive. Extraocular movements are intact. No conjunctival / lid redness or swelling. ENT: No external evidence of injury, swelling, or ecchymosis. Airway is patent. Throat is clear. NECK: Mild tenderness noted to the bilateral paracervical musculature. No swelling or evidence of injury. No subcutaneous emphysema. Trachea is midline. No thyroid mass. HEART: Regular rate and rhythm. Good peripheral pulses. LUNGS/CHEST: Breath sounds clear and equal bilaterally. No rales, rhonchi, or wheezes. No ecchymosis, subcutaneous emphysema, or tenderness. ABDOMEN: Soft with tenderness noted to the right upper quadrant and right flank. No palpable masses or organomegaly. No peritoneal signs. No abdominal wall swelling or ecchymosis. EXTREMITIES: No extremity tenderness. Normal muscle tone and function. No thoracolumbar tenderness. NEUROLOGIC: Sensation is grossly intact. Cranial nerve exam reveals face is symmetrical, tongue is midline, speech is clear. SKIN: No abrasions or ecchymosis is noted. No induration or masses noted. PSYCHIATRIC: Alert and oriented. Appropriate behavior and judgment. Limitations: no limitations Course Vital Signs 03/12/22 17:17 Temperature 98.1 F Pulse Rate 89 Respiratory 18 Rate Blood Pressure 170/99 O2 Sat by Pulse 100 Oximetry Medical Decision Making - Medical Decision Making The patient was seen and examined. An IV is established patient is hydrated. She also receives some Toradol as well as Zofran. A computed tomography scan of the abdomen and pelvis without contrast, laboratory, and urinalysis is ordered. The urinalysis does not show any evidence of infection. The blood work is all essentially within normal limits. The computed tomography scan of the abdomen and pelvis does show evidence of a dilated collecting system on the right side possibly related to a recently passed stone. Upon reevaluation, the patient is still in a fair amount of pain and morphine is given. It is felt as though she likely does have a kidney stone that is not visualized. Is likely fairly small. It is felt as though it should pass with time. She is denying any nausea. It is felt as though she stable for discharge. The CT also showed evidence of a pulmonary nodule patient is instructed to follow-up with her primary care for further evaluation of this. Radiology recommends he scan of the chest in 12 months. Return parameters are discussed. She will be referred to urology as well. Close follow-up recommended. - Lab Data Result diagrams: 03/12/22 19:59 03/12/22 19:59 Lab Results 03/12/22 03/12/22 03/12/22 Range/Units 19:31 19:59 19:59 WBC 5.7 (3.8-10.6) k/uL RBC 4.11 (3.80-5.40) m/uL Hgb 12.1 (11.4-16.0) gm/dL Hct 36.2 (34.0-46.0) % MCV 88.0 (80.0-100.0) fL MCH 29.5 (25.0-35.0) pg MCHC 33.5 (31.0-37.0) g/dL RDW 13.2 (11.5-15.5) % Plt Count 238 (150-450) k/uL MPV 9.4 Neutrophils % 66 % Lymphocytes % 25 % Monocytes % 6 % Eosinophils % 0 % Basophils % 1 % Neutrophils # 3.8 (1.3-7.7) k/uL Lymphocytes # 1.5 (1.0-4.8) k/uL Monocytes # 0.3 (0-1.0) k/uL Eosinophils # 0.0 (0-0.7) k/uL Basophils # 0.0 (0-0.2) k/uL Sodium 139 (137-145) mmol/L Potassium 3.9 (3.5-5.1) mmol/L Chloride 104 (98-107) mmol/L Carbon Dioxide 28 (22-30) mmol/L Anion Gap 7 mmol/L BUN 13 (7-17) mg/dL Creatinine 0.68 (0.52-1.04) mg/dL Est GFR (CKD-EPI)AfAm >90 (>60 ml/min/1.73 sqM) Est GFR (CKD-EPI)NonAf >90 (>60 ml/min/1.73 sqM) Glucose 95 (74-99) mg/dL Calcium 9.9 (8.4-10.2) mg/dL Total Bilirubin 0.4 (0.2-1.3) mg/dL AST 20 (14-36) U/L ALT 12 (4-34) U/L Alkaline Phosphatase 105 (38-126) U/L Total Protein 7.9 (6.3-8.2) g/dL Albumin 4.8 (3.5-5.0) g/dL Lipase 134 (23-300) U/L Urine Color Light Yellow Urine Appearance Clear (Clear) Urine pH 6.5 (5.0-8.0) Ur Specific [place] 1.009 (1.001-1.035) Urine Protein Trace H (Negative) Urine Glucose (UA) Negative (Negative) Urine Ketones Negative (Negative) Urine Blood Negative (Negative) Urine Nitrite Negative (Negative) Urine Bilirubin Negative (Negative) Urine Urobilinogen <2.0 (<2.0) mg/dL Ur Leukocyte Esterase Negative (Negative) Disposition Clinical Impression: Acute abdominal pain, Right flank pain, Headache, Nausea, Ureterolithiasis, Pulmonary nodule Disposition: HOME SELF-CARE Condition: Good Instructions (If sedation given, give patient instructions): Abdominal Pain (ED), Kidney Stones (ED), Pulmonary Nodules (ED) Prescriptions: Tamsulosin [Flomax] 0.4 mg PO DAILY #15 cap Ibuprofen [Motrin] 800 mg PO Q8H PRN #20 tab PRN Reason: Pain Is patient prescribed a controlled substance at d/c from ED?: Yes If prescribed controlled substance>3 days was MAPS reviewed?: Prescribed <3 Days Referrals: Mikey Olivera MD [Primary Care Provider] - 1-2 days Time of Disposition: 20:36
--- NOTE | 2022-03-12 19:08 | CT ---
EXAMINATION TYPE: CT abdomen pelvis wo con CT DLP: 584.5 mGycm, Automated exposure control for dose reduction was used. DATE OF EXAM: 03/12/2022 6:51 PM COMPARISON: None CLINICAL INDICATION:Female, 56 years old with history of abdominal pain; right flank pain TECHNIQUE: Axial CT of the abdomen and pelvis . Sagittal and coronal reformats were created on a [email or web address] workstation. Contrast used: none Oral contrast used: without Oral Contrast FINDINGS: LOWER CHEST: Right middle lobe 4 mm pulmonary nodule. ABDOMEN LIVER: Unremarkable GALLBLADDER AND BILE DUCTS: The gallbladder is surgically absent. PANCREAS: Unremarkable. SPLEEN: Unremarkable. ADRENAL GLANDS: Unremarkable. KIDNEYS AND URETERS: Nonobstructing calculi bilaterally measuring up to 3 mm bilaterally. Streak mildred fact from patient's back fixation hardware limits evaluation of some of the ureter. Mild dilatation o f the right collecting system. No evidence of hydronephrosis. PELVIS BLADDER: Unremarkable REPRODUCTIVE: Unremarkable. ABDOMEN & PELVIS STOMACH AND BOWEL: No evidence of bowel obstruction. The appendix is not definitively visualized. PERITONEUM: No evidence of pneumoperitoneum or free fluid. VASCULATURE: No evidence of aortic aneurysm. Mild atherosclerosis of the arterial vasculature. MUSCULOSKELETAL: No acute osseous abnormalities, multilevel disc degeneration changes seen throughout the spine with L4, 5 and S1 fixation hardware in place. Discectomy at L4-L5 and L5-S1. Hardware appe ars intact. LYMPH NODES: No gross evidence for lymphadenopathy. SOFT TISSUE/ABDOMINAL WALL: Unremarkable IMPRESSION: 1. Mild dilation of the right collecting system which could be secondary to recently passed stone. N o obstructive calculus identified within the ureter. Additional nonobstructing calculi bilaterally. 2. 4 mm right lobe pulmonary nodule. Consider follow-up in [address] chest patient if the pat ient has risk factors.
[2022-03-12 19:41] LABS: Appearance,Urine Clear (Clear); Bilirubin,Urine Negative (Negative); Blood,Urine Negative (Negative); Color,Urine Light Yellow; Glucose,Urine (UA) Negative (Negative); Ketones,Urine Negative (Negative); Leukocyte Esterase,Urine Negative (Negative); Nitrite,Urine Negative (Negative); PH, Urine 6.5 (5.0-8.0); Protein,Urine Trace (Negative); Specific Gravity,Urine 1.009 (1.001-1.035); Urobilinogen,Urine <2.0 mg/dL (<2.0)
[2022-03-12 20:09] LABS: Basophils % (A) 1 %; Eosinophils % (A) 0 %; HCT 36.2 % (34.0-46.0); HGB 12.1 gm/dL (11.4-16.0); Lymphocytes # (A) 1.5 k/uL (1.0-4.8); Lymphocytes % (A) 25 %; MCH 29.5 pg (25.0-35.0); MCHC 33.5 g/dL (31.0-37.0); Mean Platelet Volume 9.4; Monocytes # (A) 0.3 k/uL (0-1.0); Monocytes % (A) 6 %; Neutrophils # (A) 3.8 k/uL (1.3-7.7); Neutrophils % (A) 66 %; Platelet Count 238 k/uL (150-450); RBC 4.11 m/uL (3.80-5.40); RDW 13.2 % (11.5-15.5); WBC 5.7 k/uL (3.8-10.6)
[2022-03-12 20:18] LABS: ALT 12 U/L (4-34); AST 20 U/L (14-36); African American GFR (CKD) >90 (>60 ml/min/1.73 sqM); Albumin 4.8 g/dL (3.5-5.0); Alkaline Phosphatase 105 U/L (38-126); Anion Gap 7 mmol/L; Blood Urea Nitrogen 13 mg/dL (7-17); Calcium 9.9 mg/dL (8.4-10.2); Carbon Dioxide 28 mmol/L (22-30); Chloride 104 mmol/L (98-107); Glucose 95 mg/dL (74-99); Lipase 134 U/L (23-300); Non-African American GFR(CKD) >90 (>60 ml/min/1.73 sqM); Potassium 3.9 mmol/L (3.5-5.1); Sodium 139 mmol/L (137-145); Total Bilirubin 0.4 mg/dL (0.2-1.3); Total Protein 7.9 g/dL (6.3-8.2)
[2022-03-12] MEDS ORDERED: MORPHINE SULFATE 4 MG/ML SYRINGE IV STA (20:33)
[2022-03-12 21:31] VITALS: BP 157/88; PULSE 69
--- NOTE | 2022-03-12 21:43 | ED ---
Medical Decision Making - Lab Data Result diagrams: 03/12/22 19:59 03/12/22 19:59 Lab Results 03/12/22 03/12/22 03/12/22 Range/Units 19:31 19:59 19:59 WBC 5.7 (3.8-10.6) k/uL RBC 4.11 (3.80-5.40) m/uL Hgb 12.1 (11.4-16.0) gm/dL Hct 36.2 (34.0-46.0) % MCV 88.0 (80.0-100.0) fL MCH 29.5 (25.0-35.0) pg MCHC 33.5 (31.0-37.0) g/dL RDW 13.2 (11.5-15.5) % Plt Count 238 (150-450) k/uL MPV 9.4 Neutrophils % 66 % Lymphocytes % 25 % Monocytes % 6 % Eosinophils % 0 % Basophils % 1 % Neutrophils # 3.8 (1.3-7.7) k/uL Lymphocytes # 1.5 (1.0-4.8) k/uL Monocytes # 0.3 (0-1.0) k/uL Eosinophils # 0.0 (0-0.7) k/uL Basophils # 0.0 (0-0.2) k/uL Sodium 139 (137-145) mmol/L Potassium 3.9 (3.5-5.1) mmol/L Chloride 104 (98-107) mmol/L Carbon Dioxide 28 (22-30) mmol/L Anion Gap 7 mmol/L BUN 13 (7-17) mg/dL Creatinine 0.68 (0.52-1.04) mg/dL Est GFR (CKD-EPI)AfAm >90 (>60 ml/min/1.73 sqM) Est GFR (CKD-EPI)NonAf >90 (>60 ml/min/1.73 sqM) Glucose 95 (74-99) mg/dL Calcium 9.9 (8.4-10.2) mg/dL Total Bilirubin 0.4 (0.2-1.3) mg/dL AST 20 (14-36) U/L ALT 12 (4-34) U/L Alkaline Phosphatase 105 (38-126) U/L Total Protein 7.9 (6.3-8.2) g/dL Albumin 4.8 (3.5-5.0) g/dL Lipase 134 (23-300) U/L Urine Color Light Yellow Urine Appearance Clear (Clear) Urine pH 6.5 (5.0-8.0) Ur Specific [place] 1.009 (1.001-1.035) Urine Protein Trace H (Negative) Urine Glucose (UA) Negative (Negative) Urine Ketones Negative (Negative) Urine Blood Negative (Negative) Urine Nitrite Negative (Negative) Urine Bilirubin Negative (Negative) Urine Urobilinogen <2.0 (<2.0) mg/dL Ur Leukocyte Esterase Negative (Negative) Disposition Clinical Impression: Acute abdominal pain, Right flank pain, Headache, Nausea, Ureterolithiasis, Pulmonary nodule Disposition: HOME SELF-CARE Condition: Good Instructions (If sedation given, give patient instructions): Kidney Stones (ED), Abdominal Pain (ED), Pulmonary Nodules (ED) Prescriptions: Tamsulosin [Flomax] 0.4 mg PO DAILY #15 cap Ibuprofen [Motrin] 800 mg PO Q8H PRN #20 tab PRN Reason: Pain Is patient prescribed a controlled substance at d/c from ED?: No Referrals: Mikey Olivera MD [Primary Care Provider] - 1-2 days Gama Giordano MD [STAFF PHYSICIAN] - As Soon As Possible
== END 2022-03-12 21:48 | disposition home or self-care (01) ==
LOC: EC 16:47
DX: N20.1 Calculus of ureter (principal); R91.1 Solitary pulmonary nodule; R10.11 Right upper quadrant pain; R51.9 Headache, unspecified; K21.9 Gastro-esophageal reflux disease without esophagitis; Z88.2 Allergy status to sulfonamides; Z88.8 Allergy status to other drugs, medicaments and biological substances; Z79.899 Other long term (current) drug therapy
CPT/HCPCS: 36415; 80053; 83690; 85025; 81003; 74176; 99284; 96374; 96375 ×2; 96361 ×3; J2405; J1885

== ENCOUNTER → 2022-07-18 | Outpatient (CLI) | payer BC ==
--- NOTE | 2022-07-18 14:12 | XR ---
EXAMINATION TYPE: XR chest 2V DATE OF EXAM: 07/18/2022 COMPARISON: None HISTORY: 57-year-old female R05, cough for 2 weeks TECHNIQUE: Frontal and lateral views FINDINGS: The cardiomediastinal silhouette, aorta, and pulmonary vasculature are within normal limits. Lungs an d pleural spaces are clear. IMPRESSION: No acute cardiopulmonary process.
== END | disposition home or self-care (01) ==
LOC: RADXRMAIN 11:11
PROVIDERS: ATTEND Internal Medicine
DX: R05.9 Cough, unspecified (principal)
CPT/HCPCS: 71046

== ENCOUNTER → 2022-12-06 | Outpatient (CLI) | payer BC ==
--- NOTE | 2022-12-06 11:13 | CT ---
EXAMINATION TYPE: CT chest wo con CT DLP: 252.1 mGycm, Automated exposure control for dose reduction was used. DATE OF EXAM: 12/06/2022 10:59 AM COMPARISON: CT abdomen and pelvis 03/12/2022 CLINICAL INDICATION:Female, 57 years old with history of R91.1; PHH, Persistent cough TECHNIQUE: Multiple axial images were obtained through the chest without IV contrast. Lack of IV or o ral contrast limits evaluation of solid and hollow organ viscera. FINDINGS: LUNGS/ PLEURA: No pleural effusion, pneumothorax, focal consolidation. Stable right middle lobe 4 mm pulmonary nodule (series 206, image 35). AIRWAY: Patent and unremarkable.. HEART: Size within normal limits. No pericardial effusion. MEDIASTINUM: No gross evidence of adenopathy. VASCULATURE: No aortic aneurysm. MUSCULOSKELETAL: No acute osseous abnormalities SOFT TISSUES/LYMPH NODES: Unremarkable. LOWER NECK: No significant findings. UPPER ABDOMEN: Postcholecystectomy. Nonobstructive left renal calculi measuring up to 2 mm. IMPRESSION: 1. No acute thoracic process. 2. Stable 4 mm right middle lobe pulmonary nodule. Consider optional CT chest in 6 months if patient has risk factors. 3. Nonobstructive left renal calculi.
== END | disposition home or self-care (01) ==
LOC: RADCTMAIN 10:36
PROVIDERS: ATTEND Internal Medicine
DX: N20.0 Calculus of kidney (principal); R91.1 Solitary pulmonary nodule
CPT/HCPCS: 71250

== ENCOUNTER → 2022-12-06 | Outpatient (CLI) | payer BC ==
--- NOTE | 2022-12-06 10:10 | BD ---
EXAMINATION TYPE: Axial Bone Density DATE OF EXAM: 12/06/2022 CLINICAL HISTORY: 57 years old Female. ICD-10 CODE: Z78.0 ASYMPTOMATIC POST MENOPAUSAL Height: 69 Weight: 161.9 FRAX RISK QUESTIONS: Alcohol (3 or more units per day): no Family History (Parent hip fracture): no Glucocorticoids (More than 3mos): no (Ex: prednisone, prednisolone, methylprednisolone, dexamethasone, and hydrocortisone). History of Fracture in Adulthood: no Secondary Osteoporosis: 1. Type 1 Diabetes: no 2. Hyperthyroidism: no 3. Menopause before 45: yes 4. Malnutrition: no 5. Chronic liver disease: no Rheumatoid Arthritis: no Current Tobacco Use: no RISK FACTORS HISTORY OF: History of Wrist Fracture: left wrist When: age 8 Surgery to Spine/Hip(right/left)/Wrist (right/left): lumbar spine When: [id number] Family History of Osteoporosis: yes Active: yes Diet low in dairy products/other sources of calcium: no Postmenopausal woman: yes Lost more than 2 inches in height since high school: no MEDICATIONS: Additional History: EXAM MEASUREMENTS: Bone mineral densitometry was performed using the Dexrex Gear System. 0.790 Bone mineral density about the R hip (g/cm2): 0.790 Bone mineral density about the L hip (g/cm2): 0.769 T Score values are as follows: -----R Neck: -2.0 -----L Neck: -1.8 -----R Total: -1.7 -----L Total: -1.9 Z Score values are as follows: -----R Neck: -1.1 -----L Neck: -0.9 -----R Total: -1.7 -----L Total: -1.2 Bone mineral density : baseline Bone mineral density about the R Wrist (g/cm2): 0.634 T Score values are as follows: -----Dist. R+U: -1.3 -----Prox. R+U: -0.2 -----Radius total: -0.7 Z Score values are as follows: -----Dist. R+U: -0.7 -----Prox. R+U: 0.4 -----Radius total: -0.1 Bone mineral density : baseline FRAX%s: The graph provided illustrates a 8.3% chance for a major osteoporotic fx and a 1.1% chance fo r the hips probability for fx in 10 years time. IMPRESSION: Osteopenia (T Score between -2.5 and -1). There is slightly increased risk of fracture and the patient may be considered for treatment. Re-Screen 2-5 years. NOTE: T-SCORE=SD OF THE YOUNG ADULT MEAN.
[2022-12-06 16:25] LABS: Basophils # (A) 0.02 X 10*3/uL (0.00-0.10); Basophils % (A) 0.5 %; Eosinophils # (A) 0.04 X 10*3/uL (0.04-0.35); Eosinophils % (A) 1.1 %; Immature Grans, Automated 0 %; Lymphocytes # (A) 1.06 X 10*3/uL (0.90-5.00); Lymphocytes % (A) 28.8 %; MCH 31.3 pg (27.0-32.0); MCHC 34.3 g/dL (32.0-37.0); MCV 91.1 fL (80.0-97.0); Mean Platelet Volume 11.9 fL (9.5-12.2); Monocytes # (A) 0.44 X 10*3/uL (0.20-1.00); NRBC Per 100 WBC 0 /100 WBCS (0.0-0.0); Neutrophils # (A) 2.12 X 10*3/uL (1.80-7.70); Neutrophils % (A) 57.6 %; Platelet Count 196 X 10*3/uL (140-440); RBC 3.84 X 10*6/uL (4.10-5.20); RDW 13.2 % (11.5-14.5); WBC 3.68 X 10*3/uL (4.50-10.00)
[2022-12-06 16:32] LABS: Carbon Dioxide 28.6 mmol/L (20.0-27.5); Chloride 104 mmol/L (96-109); Glucose 108 mg/dL (70-110); Potassium 4.2 mmol/L (3.5-5.5); Sodium 143 mmol/L (135-145)
[2022-12-06 16:33] LABS: ALT 11 U/L (8-44); AST 18 U/L (13-35); African American GFR (CKD) 95.5 (60.0-200.0); Albumin 4.8 g/dL (3.8-4.9); Albumin/Globulin Ratio 1.85 (1.60-3.17); Alkaline Phosphatase 91 U/L (41-126); BUN/Creat Ratio 17.13 Ratio (12.00-20.00); Blood Urea Nitrogen 13.7 mg/dL (9.0-27.0); Chol/HDL Ratio 4.52 Ratio; Globulin 2.6 g/dL (1.6-3.3); LDL Cholesterol,Calculated 189.8 mg/dL (0.0-131.0); Non-African American GFR(CKD) 82.4 (60.0-200.0); Total Protein 7.4 g/dL (6.2-8.2); VLDL Calculation 11.86 mg/dL (5.00-40.00)
--- NOTE | 2022-12-07 16:07 | MM ---
Reason for Exam: Screening (asymptomatic). Last mammogram was performed 1 year(s) and 4 month(s) ago. Patient History: Menarche at age 14. First Full-Term at age 22. Left ovary removed at age 31. Hysterectomy at age 31. Postmenopausal. Patient has history of breast feeding. Risk Values: Michelle 5 year model risk: 1.1%. NCI Lifetime model risk: 7.2%. Prior Study Comparison: 03/09/2016 Screening Mammogram, Unknown. 04/24/2017 Screening Mammogram, Unknown. 08/07/2021 Bilateral Screening Mammogram, [facility]. Tissue Density: The breast tissue is extremely dense which could obscure a lesion on mammography. Findings: Analyzed By CAD. Pattern appears symmetrical and stable. No significant interval change is evident. Benign punctate calcifications are present bilaterally. There is some focal asymmetry within the posterior right breast not clearly identified previously. Additional evaluation with compression view is recommended. Overall Assessment: Incomplete: need additional imaging evaluation, BI-RAD 0 Management: Diagnostic Mammogram of the right breast. A negative mammogram report should not preclude additional follow up of suspicious palpable abnormalities. Patient should continue monthly self breast exam. A clinical breast exam by your physician is recommended on an annual basis and results should be correlated with mammographic findings. Electronically signed and approved by: Trenton Hess D.O. Radiologis
== END | disposition home or self-care (01) ==
LOC: RADMAMWWP 09:28
PROVIDERS: ATTEND Internal Medicine
DX: Z12.31 Encounter for screening mammogram for malignant neoplasm of breast (principal); Z11.59 Encounter for screening for other viral diseases; M85.89 Other specified disorders of bone density and structure, multiple sites; K21.9 Gastro-esophageal reflux disease without esophagitis; M47.816 Spondylosis without myelopathy or radiculopathy, lumbar region; Z78.0 Asymptomatic menopausal state
CPT/HCPCS: 36415; 77067; 77080; 80053; 80061; 83735; 84443; 85025; 86803

== ENCOUNTER → 2022-12-11 | Outpatient (CLI) | payer BC ==
--- NOTE | 2022-12-11 11:01 | MM ---
Reason for Exam: Additional evaluation requested from abnormal screening. Last screening mammogram was performed less than 1 month ago. Patient History: Menarche at age 14. First Full-Term at age 22. Left ovary removed at age 31. Hysterectomy at age 31. Postmenopausal. Patient has history of breast feeding. Risk Values: Michelle 5 year model risk: 1.1%. NCI Lifetime model risk: 7.2%. Prior Study Comparison: 03/09/2016 Screening Mammogram, Unknown. 04/24/2017 Screening Mammogram, Unknown. 08/07/2021 Bilateral Screening Mammogram, [facility]. 12/06/2022 Bilateral MG screening mammo w CAD, [facility]. Tissue Density: Right: The breast tissue is heterogeneously dense. This may lower the sensitivity of mammography. Findings: Analyzed By CAD. No distinct persistent mass or distortion. No suspicious calcifications. Overall Assessment: Benign, BI-RAD 2 Management: Screening Mammogram of both breasts in 1 year. A clinical breast exam by your physician is recommended on an annual basis and results should be correlated with mammographic findings. This exam should not preclude additional follow-up of suspicious palpable abnormalities. Results were given to the patient verbally at the time of exam. Electronically signed and approved by: Omid Rebollar M.D. Radiologis
[2022-12-11 11:56] LABS: Basophils % (A) 0 %; Eosinophils % (A) 1 %; HGB 11.9 gm/dL (11.4-16.0); Lymphocytes % (A) 30 %; MCH 30.3 pg (25.0-35.0); MCHC 34.1 g/dL (31.0-37.0); Mean Platelet Volume 9.9; Monocytes # (A) 0.3 k/uL (0-1.0); Monocytes % (A) 9 %; Neutrophils # (A) 1.8 k/uL (1.3-7.7); Neutrophils % (A) 58 %; Platelet Count 157 k/uL (150-450); RBC 3.93 m/uL (3.80-5.40); RDW 13.6 % (11.5-15.5); WBC 3.2 k/uL (3.8-10.6)
[2022-12-11 16:05] LABS: Protein, Total 7.3 g/dL (6.2-8.2)
[2022-12-12 01:29] LABS: HIV 2 AB Non-Reactive (Non-Reactive); HIV AB P24 Non-Reactive (Non-Reactive); HIV P24 AG Non-Reactive (Non-Reactive)
[2022-12-12 18:49] LABS: Albumin 4.69 g/dL (3.80-4.90); Gamma Globulin 1.09 g/dL (0.70-1.50)
== END | disposition home or self-care (01) ==
LOC: RADMAMWWP 10:10
PROVIDERS: ATTEND Internal Medicine
DX: R92.8 Other abnormal and inconclusive findings on diagnostic imaging of breast (principal); Z78.0 Asymptomatic menopausal state
CPT/HCPCS: 77061; 77065; 82607; 82746; 83615; 84165; 85025; 86038; 87390

== ENCOUNTER → 2023-04-09 | Outpatient (CLI) | payer BC | LOC: CPPFTMAIN 11:12 | PROVIDERS: ATTEND Internal Medicine | DX: J45.909 Unspecified asthma, uncomplicated (principal); Z88.2 Allergy status to sulfonamides; Z88.8 Allergy status to other drugs, medicaments and biological substances | CPT/HCPCS: 94060; 94726; 94729 ==

== ENCOUNTER → 2023-06-28 | Outpatient (CLI) | payer BC ==
[2023-06-28 14:23] LABS: Basophils % (A) 0 %; Eosinophils % (A) 1 %; HCT 33.8 % (34.0-46.0); HGB 11.6 gm/dL (11.4-16.0); Lymphocytes # (A) 1.3 k/uL (1.0-4.8); Lymphocytes % (A) 32 %; MCH 31.9 pg (25.0-35.0); MCHC 34.4 g/dL (31.0-37.0); MCV 92.7 fL (80.0-100.0); Mean Platelet Volume 9.1; Monocytes # (A) 0.2 k/uL (0-1.0); Monocytes % (A) 6 %; Neutrophils # (A) 2.3 k/uL (1.3-7.7); Neutrophils % (A) 59 %; Platelet Count 174 k/uL (150-450); RBC 3.64 m/uL (3.80-5.40); RDW 12.6 % (11.5-15.5); WBC 3.9 k/uL (3.8-10.6)
[2023-06-28 15:14] LABS: Total Eosinophil Count 43 #EOS/uL (150-300)
[2023-06-28 22:30] LABS: Alternaria alternata IgE <0.10 kU/L; Aspergillus fumagatus IgE <0.10 kU/L; Birch IgE <0.10 kU/L; Cat Epith & Dander IgE <0.10 kU/L; Cladosporian herbarum IgE <0.10 kU/L; Cockroach IgE <0.10 kU/L; Dermato. farinae IgE <0.10 kU/L; Dog Dander IgE 0.23 kU/L; Elm IgE <0.10 kU/L; Maple (Box Elder) IgE <0.10 kU/L; Oak IgE <0.10 kU/L; Ragweed,Common IgE <0.10 kU/L; Red Top (Bentgrass) IgE <0.10 kU/L
== END | disposition home or self-care (01) ==
LOC: LABWHC1 13:15
PROVIDERS: ATTEND Internal Medicine
DX: R05.3 Chronic cough (principal)
CPT/HCPCS: 36415; 82785; 85008; 85025; 86003

== ENCOUNTER → 2023-09-09 | Outpatient (CLI) | payer BC ==
[2023-09-09 15:05] LABS: Basophils # (A) 0.02 X 10*3/uL (0.00-0.10); Basophils % (A) 0.5 %; Eosinophils # (A) 0.03 X 10*3/uL (0.04-0.35); Eosinophils % (A) 0.8 %; HCT 35.3 % (37.2-46.3); HGB 12.1 g/dL (12.0-15.0); Lymphocytes # (A) 1.15 X 10*3/uL (0.90-5.00); Lymphocytes % (A) 31.2 %; MCH 31.8 pg (27.0-32.0); MCHC 34.3 g/dL (32.0-37.0); MCV 92.7 FL (80.0-97.0); Mean Platelet Volume 12.3 FL (9.5-12.2); Monocytes # (A) 0.44 X 10*3/uL (0.20-1.00); Monocytes % (A) 11.9 %; NRBC Per 100 WBC 0 X 10*3/uL (0.00-0.01); Neutrophils # (A) 2.04 X 10*3/uL (1.80-7.70); Neutrophils % (A) 55.3 %; Platelet Count 165 X 10*3/uL (140-440); RBC 3.81 X 10*6/uL (4.10-5.20); RDW 12.5 % (11.5-14.5); WBC 3.69 X 10*3/uL (4.50-10.00)
[2023-09-09 15:26] LABS: % Iron Saturation 22.97 (12.00-45.00); ALT 22 U/L (8-44); AST 25 U/L (13-35); Albumin 4.9 g/dL (3.8-4.9); Albumin/Globulin Ratio 1.96 Ratio (1.60-3.17); Alkaline Phosphatase 82 U/L (41-126); BUN/Creat Ratio 21.38 Ratio (12.00-20.00); Blood Urea Nitrogen 17.1 mg/dL (9.0-27.0); Calcium 10.1 mg/dL (8.7-10.3); Carbon Dioxide 28.1 mmol/L (21.6-31.8); Chloride 101 mmol/L (96-109); Chol/HDL Ratio 2.54 Ratio; Creatine Kinase 97 U/L (26-186); Globulin 2.5 g/dL (1.6-3.3); Glucose 91 mg/dL (70-110); Iron 85 UG/DL (50-170); LDL Cholesterol,Calculated 74.4 mg/dL (0.0-131.0); Magnesium 1.9 mg/dL (1.5-2.4); Potassium 4.3 mmol/L (3.5-5.5); Sodium 141 mmol/L (135-145); Total Bilirubin 0.5 mg/dL (0.3-1.2); Total Iron Binding Capacity 370 UG/DL (228-460); Total Protein 7.4 g/dL (6.2-8.2); Uric Acid 4.4 mg/dL (2.9-7.7); VLDL Calculation 14.16 mg/dL (5.00-40.00)
== END | disposition home or self-care (01) ==
LOC: LABWHC1 08:54
PROVIDERS: ATTEND Internal Medicine
DX: G25.81 Restless legs syndrome (principal); E78.5 Hyperlipidemia, unspecified; M85.80 Other specified disorders of bone density and structure, unspecified site; N20.0 Calculus of kidney
CPT/HCPCS: 36415; 80053; 80061; 82306; 82550; 82607; 82746; 83540; 83550; 83735; 84443; 84550; 85025

== ENCOUNTER → 2024-03-04 | Outpatient (CLI) | payer BC ==
--- NOTE | 2024-03-08 13:38 | MM ---
Reason for Exam: Screening (asymptomatic). Last mammogram was performed 1 year(s) and 3 month(s) ago. Patient History: Menarche at age 14. First Full-Term at age 22. Left ovary removed at age 31. Hysterectomy at age 31. Postmenopausal. Patient has history of breast feeding. Risk Values: Michelle 5 year model risk: 1.1%. NCI Lifetime model risk: 7.1%. Prior Study Comparison: 08/07/2021 Bilateral Screening Mammogram, [facility]. 12/06/2022 Bilateral MG screening mammo w CAD, [facility]. 12/11/2022 Right MG 3D work up w/cad RT, [facility]. Tissue Density: The breasts are extremely dense, which lowers the sensitivity of mammography. Findings: Analyzed By CAD. The pattern is symmetrical. No significant interval change is evident. No suspicious groups of microcalcifications, spiculated or lobular masses, architectural distortion or other secondary signs of malignancy are mammographically apparent. Overall Assessment: Benign, BI-RAD 2 Management: Screening Mammogram of both breasts in 1 year. A negative mammogram report should not preclude additional follow up of suspicious palpable abnormalities. Patient should continue monthly self breast exam. A clinical breast exam by your physician is recommended on an annual basis and results should be correlated with mammographic findings. Note on Michelle scores and lifetime risk: 1. A Michelle score greater than 3% is considered moderate risk. If this is the case, consider specialist referral to assess eligibility for a risk reducing agent. 2. If overall lifetime risk for the development of breast cancer is 20% or higher, the patient may qualify for future screening with alternating mammogram and breast MRI. Electronically signed and approved by: Trenton Hess D.O. Radiologis
== END | disposition home or self-care (01) ==
LOC: RADMAMWWP 14:21
PROVIDERS: ATTEND Internal Medicine
DX: Z12.31 Encounter for screening mammogram for malignant neoplasm of breast (principal); R92.333 Mammographic heterogeneous density, bilateral breasts; Z78.0 Asymptomatic menopausal state; Z90.721 Acquired absence of ovaries, unilateral
CPT/HCPCS: 77063; 77067

== ENCOUNTER → 2024-06-17 | Outpatient (CLI) | payer BC ==
--- NOTE | 2024-06-17 14:17 | CT ---
EXAMINATION TYPE: CT chest wo con CT DLP: 320.4 mGycm, Automated exposure control for dose reduction was used. DATE OF EXAM: 06/17/2024 2:00 PM COMPARISON: Chest radiograph 06/26/2023, CT chest 12/06/2022 CLINICAL INDICATION:Female, 59 years old with history of LUNG NODULE R91.1; PHH, lung nodule TECHNIQUE: Multiple axial images were obtained through the chest without IV contrast. Lack of IV or o ral contrast limits evaluation of solid and hollow organ viscera. . Coronal and sagittal reformats re viewed. FINDINGS: LUNGS/ PLEURA: No pleural effusion, pneumothorax, focal consolidation. Stable right middle lobe 4 mm pulmonary nodule (series 4, image 39). Lingular calcified granuloma. No new or enlarging pulmonary no dules. Biapical pleural-parenchymal scarring. AIRWAY: Patent and unremarkable.. HEART: Size within normal limits. No pericardial effusion. Small LAD coronary artery calcification. MEDIASTINUM: No gross evidence of adenopathy. VASCULATURE: No aortic aneurysm. MUSCULOSKELETAL: No acute osseous abnormalities. Partial visualization of cervical fusion hardware. SOFT TISSUES/LYMPH NODES: Unremarkable. LOWER NECK: No significant findings. UPPER ABDOMEN: Gallbladder is surgically absent. Nonobstructive left renal calculi measuring up to 3 mm. 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 IMPRESSION: 1. Stable 4 mm right middle lobe pulmonary nodule. Considered benign. No new or enlarging pulmonary n odules. 2. Nonobstructive left renal calculi. [facility], , 06/17/2024 2:15 PM
== END | disposition home or self-care (01) ==
LOC: RADCTMAIN 13:44
PROVIDERS: ATTEND Internal Medicine
CPT/HCPCS: 71250

== ENCOUNTER 2024-07-02 17:35 | Emergency (ER) | payer BC ==
[2024-07-02 18:10] VITALS: RESP 18; TEMP 97.5
--- NOTE | 2024-07-02 18:22 | ED ---
Abdominal Pain HPI - General Source: patient, RN notes reviewed Mode of arrival: ambulatory Limitations: no limitations - History of Present Illness MD Complaint: abdominal pain Onset/Timin -: days(s) Location: epigastric Severity scale (1-10): 8 Quality: sharp Consistency: constant <Torres Kumar - Last Filed: 07/02/24 18:18> <Yasmeen Lemus - Last Filed: 07/02/24 22:13> - General Chief Complaint: Abdominal Pain Stated Complaint: NV,Abd pain Time Seen by Provider: 07/02/24 17:52 - History of Present Illness Initial Comments: Quick note: This is a 59-year-old female presenting with sharp, constant upper abdominal pain (8 out of 10) x 3 days. Patient states pain was originally intermittent but is worsened recently. Patient also endorses fatigue and nausea/vomiting x 5 days. Endorses use of Protonix with no relief. Patient denies fever, chills, chest pain, dyspnea, hematemesis, diarrhea/constipation, melena. (Torres Kumar) This is a 59-year-old female is presenting to the emergency department chief complaint of epigastric abdominal pain that is described as a twisting sensation that has been persistent throughout the day today. States that her abdominal pain started about 3 to 4 days ago that was intermittent and associated with nausea, vomiting, and fatigue. Patient states that her emesis has been brown in color. She denies chest pain, shortness of breath, difficulty breathing, hematochezia, melena. Patient states that she has been urinating more frequently, denies dysuria, hematuria, increase in urinary frequency or urgency. Patient states that over the past 2 years she has been taking upwards of 800 mg of ibuprofen 3 times a day due to chronic back pain. She denies history of GI bleeds. Denies blood thinner use. (Yasmeen Lemus) - Related Data Home Medications Medication Instructions Recorded Confirmed Pantoprazole [Protonix] 40 mg PO DAILY PRN 12/25/21 07/02/24 Atorvastatin [Lipitor] 40 mg PO HS 07/02/24 07/02/24 Cyclobenzaprine [Flexeril] 5 mg PO Q8H PRN 07/02/24 07/02/24 Ibuprofen [Motrin] 800 mg PO TID-W/MEALS PRN 07/02/24 07/02/24 amLODIPine [Norvasc] 5 mg PO HS 07/02/24 07/02/24 rOPINIRole HCL [Requip] 1 mg PO HS 07/02/24 07/02/24 Previous Rx's Medication Instructions Recorded Ondansetron Odt [Zofran Odt] 4 mg PO Q8HR PRN #10 tab 07/02/24 Allergies Allergy/AdvReac Type Severity Reaction Status Date / Time Sulfa (Sulfonamide Allergy Unknown Rash/Hives, Verified 07/02/24 20:57 Antibiotics) Dyspnea metoclopramide [From Reglan] Allergy Rash/Hives, Verified 07/02/24 20:57 anxiety, skin crawling prochlorperazine Allergy Rash/Hives, Verified 07/02/24 20:57 [From Compazine] anxiety, skin crawling Review of Systems ROS Other: All systems not noted in ROS Statement are negative. <Torres Kumar - Last Filed: 07/02/24 18:18> ROS Other: All systems not noted in ROS Statement are negative. <Yasmeen Lemus - Last Filed: 07/02/24 22:13> ROS Statement: Those systems with pertinent positive or pertinent negative responses have been documented in the HPI. Past Medical History Past Medical History: GERD/Reflux Additional Past Medical History / Comment(s): hx stomach ulcer, internal hemorrhoids., back pain History of Any Multi-Drug Resistant Organisms: None Reported Past Surgical History: Back Surgery, Section, Hysterectomy, Orthopedic Surgery Additional Past Surgical History / Comment(s): back surgery x2, neck surgery, left rotator cuff, 9 arthroscopic knee surgeries, several abdominal surgeries for endometriosis. Past Anesthesia/Blood Transfusion Reactions: Postoperative Nausea & Vomiting (PONV) Additional Past Anesthesia/Blood Transfusion Reaction / Comment(s): severe ponv Past Psychological History: No Psychological Hx Reported Smoking Status: Never smoker Past Alcohol Use History: None Reported Past Drug Use History: None Reported - Past Family History Brother(s) Family Medical History: Cancer Additional Family Medical History / Comment(s): colon cancer <Torres Kumar - Last Filed: 07/02/24 18:18> General Exam Limitations: no limitations <Torres Kumar - Last Filed: 07/02/24 18:18> General appearance: alert, in no apparent distress Eye exam: Present: normal appearance, PERRL, EOMI. Absent: scleral icterus, conjunctival injection, periorbital swelling ENT exam: Present: normal exam, mucous membranes moist Neck exam: Present: normal inspection. Absent: tenderness, meningismus, lymphadenopathy Respiratory exam: Present: normal lung sounds bilaterally. Absent: respiratory distress, wheezes, rales, rhonchi, stridor Cardiovascular Exam: Present: regular rate, normal rhythm, normal heart sounds. Absent: systolic murmur, diastolic murmur, rubs, gallop, clicks GI/Abdominal exam: Present: soft, tenderness (epigastric to palpation), normal bowel sounds. Absent: distended, guarding, rebound, rigid Extremities exam: Present: normal inspection, full ROM, normal capillary refill. Absent: tenderness, pedal edema, joint swelling, calf tenderness Back exam: Present: normal inspection Neurological exam: Present: alert, oriented X3, CN II-XII intact Skin exam: Present: warm, dry, intact, normal color. Absent: rash <Yasmeen Lemus - Last Filed: 07/02/24 22:13> - General Exam Comments Initial Comments: Visual Physical Exam Vital signs reviewed General: Well-appearing, nontoxic, no acute distress. Head: Normocephalic, atraumatic Eyes: PERRLA, EOMI ENT: Airway patent Chest: Nonlabored breathing Skin: No visual rash, normal skin tone Neuro: Alert and oriented 3 Musculoskeletal: No gross abnormalities (Torres Kumar) Course Vital Signs 07/02/24 07/02/24 18:08 21:30 Temperature 97.5 F L Pulse Rate 93 86 Respiratory 18 18 Rate Blood Pressure 163/97 146/90 O2 Sat by Pulse 98 97 Oximetry Medical Decision Making <Torres Kumar - Last Filed: 07/02/24 18:18> - Lab Data Result diagrams: 07/02/24 20:07 07/02/24 20:07 <Yasmeen Lemus - Last Filed: 07/02/24 22:13> - Medical Decision Making I completed the quick note portion of this chart signed HIRAM Boothe (Torres Kumar) Was pt. sent in by a medical professional or institution ([facility]son, [employer], urgent care, hospital, or senior living...) When possible be specific @ -No Did you speak to anyone other than the patient for history (EMS, parent, family, police, friend...)? What history was obtained from this source @ -No Did you review nursing and triage notes (agree or disagree)? Why? @ -I reviewed and agree with nursing and triage notes Were old charts reviewed (outside hosp., previous admission, EMS record, old EKG, old radiological studies, urgent care reports/EKG's, senior living records)? Report findings @ -No old charts were reviewed Differential Diagnosis (chest pain, altered mental status, abdominal pain women, abdominal pain men, vaginal bleeding, weakness, fever, dyspnea, syncope, headache, dizziness, GI bleed, back pain, seizure, CVA, palpatations, mental health, musculoskeletal)? @ -Differential Abdominal Pain Women: Appendicitis, Cholecystitis, diverticulosis, ischemic bowel, pancreatitis, hepatitis, UTI, gastroenteritis, AAA, incarcerated hernia, bowel obstruction, constipation, inflammatory bowel, hepatitis, peptic ulcer disease, splenic infarction, perforated viscus, vulvitis, ovarian torsion, PID, kidney stone, placenta abruption, this is not meant to be an all-inclusive list EKG interpreted by me (3pts min.). @ -completed at 1907 sinus rhythm with a ventricular rate of 88, NJ interval 127, QRS 93, QTc 406. X-rays interpreted by me (1pt min.). @ -X-ray no acute cardiopulmonary process or disease CT interpreted by me (1pt min.). @ -None done U/S interpreted by me (1pt. min.). @ -US of the abdomen reveals no acute suspicious abnormality What testing was considered but not performed or refused? (CT, X-rays, U/S, labs)? Why? @ -None What meds were considered but not given or refused? Why? @ -None Did you discuss the management of the patient with other professionals (professionals i.e. , PA, [employer]DE [employer]DER, lab, RT, psych nurse, social science analyst, weaver narrow fabrics, teacher, forestry technical officer, egg caser)? Give summary @ -No Was smoking cessation discussed for >3mins.? @ -No Was critical care preformed (if so, how long)? @ -No Were there social determinants of health that impacted care today? How? (Aba elessness, low income, unemployed, alcoholism, drug addiction, transportation, low edu. Level, literacy, decrease access to med. care, fpc, rehab)? @ -No Was there de-escalation of care discussed even if they declined (Discuss DNR or withdrawal of care, Hospice)? DNR status @ -No What co-morbidities impacted this encounter? (DM, HTN, Smoking, COPD, CAD, Cancer, CVA, ARF, Chemo, Hep., AIDS, mental health diagnosis, sleep apnea, morbid obesity)? @ -None Was patient admitted / discharged? Hospital course, mention meds given and route, prescriptions, significant lab abnormalities, going to OR and other pertinent info. @ -Discharge. 16-year-old female with epigastric abdominal pain, nausea vomi ting. Patient was evaluated in the Emergency Department waiting room as a quick note where laboratory studies were ordered addition to chest x-ray. Patient's EKG reveals sinus rhythm. On examination patient is noted to have mild epigastric tenderness to palpation with no signs of rebound tenderness or rigidity. Vitals are stable. Patient is provided with Pain medication and Protonix pending laboratory results. Laboratory testing including CBC, coagulation profile, CMP, troponin within normal limits. Ultrasound of the right upper quadrant no acute process. Discussed with patient at bedside to follow-up with GI specialist with concern for possible peptic ulcer disease as patient describes her emesis as brown in appearance. Recommend that she continue on pump inhibitor at home as well and take prescribed Zofran as needed for nausea. dicussed with Dr. waddell Undiagnosed new problem with uncertain prognosis? @ -No Drug Therapy requiring intensive monitoring for toxicity (Heparin, Nitro, Insulin, Cardizem)? @ -No Were any procedures done? @ -No Diagnosis/symptom? @ -Nausea, vomiting, abdominal pain Acute, or Chronic, or Acute on Chronic? @ -Acute Uncomplicated (without systemic symptoms) or Complicated (systemic symptoms)? @ -Uncomplicated Side effects of treatment? @ -No Exacerbation, Progression, or Severe Exacerbation? @ -No Poses a threat to life or bodily function? How? (Chest pain, [place], [place], pneumonia, PE, COPD, DKA, ARF, appy, cholecystitis, CVA, Diverticulitis, Homicidal, Suicidal, threat to staff... and all critical care pts) @ -No (Yasmeen Lemus) - Lab Data Lab Results 07/02/24 07/02/24 07/02/24 Range/Units 20:07 20:07 20:07 WBC 7.0 (3.8-10.6) k/uL RBC 4.03 (3.80-5.40) m/uL Hgb 12.4 (11.4-16.0) gm/dL Hct 37.3 (34.0-46.0) % MCV 92.4 (80.0-100.0) fL MCH 30.7 (25.0-35.0) pg MCHC 33.2 (31.0-37.0) g/dL RDW 12.6 (11.5-15.5) % Plt Count 205 (150-450) k/uL MPV 8.0 Neutrophils % 70 % Lymphocytes % 22 % Monocytes % 5 % Eosinophils % 1 % Basophils % 0 % Neutrophils # 4.9 (1.3-7.7) k/uL Lymphocytes # 1.5 (1.0-4.8) k/uL Monocytes # 0.4 (0-1.0) k/uL Eosinophils # 0.1 (0-0.7) k/uL Basophils # 0.0 (0-0.2) k/uL PT (10.0-12.5) sec INR (<1.2) APTT (22.0-30.0) sec Sodium 140 (137-145) mmol/L Potassium 4.1 (3.5-5.1) mmol/L Chloride 106 (98-107) mmol/L Carbon Dioxide 26 (22-30) mmol/L Anion Gap 8 mmol/L BUN 15 (7-17) mg/dL Creatinine 0.78 (0.52-1.04) mg/dL Est GFR (CKD-EPI)AfAm >90 (>60 ml/min/1.73 sqM) Est GFR (CKD-EPI)NonAf 84 (>60 ml/min/1.73 sqM) Glucose 106 H (74-99) mg/dL Plasma Lactic Acid Ronn 0.6 L (0.7-2.0) mmol/L Calcium 9.6 (8.4-10.2) mg/dL Magnesium 1.9 (1.6-2.3) mg/dL Total Bilirubin 0.4 (0.2-1.3) mg/dL AST 29 (14-36) U/L ALT 19 (4-34) U/L Alkaline Phosphatase 112 (38-126) U/L Troponin I (0.000-0.034) ng/mL Total Protein 7.9 (6.3-8.2) g/dL Albumin 4.9 (3.5-5.0) g/dL Amylase 58 (30-110) U/L Lipase 117 (23-300) U/L 07/02/24 07/02/24 Range/Units 20:07 20:07 WBC (3.8-10.6) k/uL RBC (3.80-5.40) m/uL Hgb (11.4-16.0) gm/dL Hct (34.0-46.0) % MCV (80.0-100.0) fL MCH (25.0-35.0) pg MCHC (31.0-37.0) g/dL RDW (11.5-15.5) % Plt Count (150-450) k/uL MPV Neutrophils % % Lymphocytes % % Monocytes % % Eosinophils % % Basophils % % Neutrophils # (1.3-7.7) k/uL Lymphocytes # (1.0-4.8) k/uL Monocytes # (0-1.0) k/uL Eosinophils # (0-0.7) k/uL Basophils # (0-0.2) k/uL PT 10.1 (10.0-12.5) sec INR 0.9 (<1.2) APTT 24.0 (22.0-30.0) sec Sodium (137-145) mmol/L Potassium (3.5-5.1) mmol/L Chloride (98-107) mmol/L Carbon Dioxide (22-30) mmol/L Anion Gap mmol/L BUN (7-17) mg/dL Creatinine (0.52-1.04) mg/dL Est GFR (CKD-EPI)AfAm (>60 ml/min/1.73 sqM) Est GFR (CKD-EPI)NonAf (>60 ml/min/1.73 sqM) Glucose (74-99) mg/dL Plasma Lactic Acid Ronn (0.7-2.0) mmol/L Calcium (8.4-10.2) mg/dL Magnesium (1.6-2.3) mg/dL Total Bilirubin (0.2-1.3) mg/dL AST (14-36) U/L ALT (4-34) U/L Alkaline Phosphatase (38-126) U/L Troponin I <0.012 (0.000-0.034) ng/mL Total Protein (6.3-8.2) g/dL Albumin (3.5-5.0) g/dL Amylase (30-110) U/L Lipase (23-300) U/L Disposition <Torres Kumar - Last Filed: 07/02/24 18:18> Is patient prescribed a controlled substance at d/c from ED?: No Time of Disposition: 21:21 <Yasmeen Lemus - Last Filed: 07/02/24 22:13> Clinical Impression: Abdominal pain, Nausea and vomiting Disposition: HOME SELF-CARE Condition: Good Instructions (If sedation given, give patient instructions): Acute Nausea and Vomiting (DC) Additional Instructions: Please return to the Emergency Department if symptoms worsen or any other concerns. Recommend that you do contact your GI specialist to schedule appointment for further evaluation with possible endoscope. Continue prescribed for acid reflux, Protonix, and take Zofran as needed for nausea. Prescriptions: Ondansetron Odt [Zofran Odt] 4 mg PO Q8HR PRN #10 tab PRN Reason: Nausea Referrals: Negro De La Garza DO [Primary Care Provider] - 1-2 days
--- NOTE | 2024-07-02 19:52 | XR ---
EXAMINATION TYPE: XR chest 2V DATE OF EXAM: 07/02/2024 7:38 PM COMPARISON: Chest radiographs from 07/18/2022 CLINICAL INDICATION: Female, 59 years old with history of Upper abdominal pain; TECHNIQUE: XR chest 2V Frontal and lateral views of the chest. FINDINGS: Lungs/Pleura: There is no evidence of pleural effusion, focal consolidation, or pneumothorax. Pulmonary vascularity: Unremarkable. Heart/mediastinum: Cardiomediastinal silhouette is unremarkable. Musculoskeletal: No acute osseous pathology. IMPRESSION: No acute cardiopulmonary disease/process. [facility], , 07/02/2024 7:50 PM
[2024-07-02 20:18] LABS: Basophils % (A) 0 %; Eosinophils # (A) 0.1 k/uL (0-0.7); Eosinophils % (A) 1 %; HCT 37.3 % (34.0-46.0); HGB 12.4 gm/dL (11.4-16.0); Lymphocytes # (A) 1.5 k/uL (1.0-4.8); Lymphocytes % (A) 22 %; MCH 30.7 pg (25.0-35.0); MCHC 33.2 g/dL (31.0-37.0); MCV 92.4 fL (80.0-100.0); Monocytes # (A) 0.4 k/uL (0-1.0); Monocytes % (A) 5 %; Neutrophils # (A) 4.9 k/uL (1.3-7.7); Neutrophils % (A) 70 %; Platelet Count 205 k/uL (150-450); RBC 4.03 m/uL (3.80-5.40); RDW 12.6 % (11.5-15.5)
[2024-07-02] MEDS: PANTOPRAZOLE 40 MG/10 ML VIAL IVP STA (20:18)
[2024-07-02] MEDS: HYDROmorphone 0.5 MG/0.5 ML SYRINGE IVP STA (20:18)
[2024-07-02 20:34] LABS: INR 0.9 (<1.2); Prothrombin Time 10.1 sec (10.0-12.5)
[2024-07-02 20:38] LABS: ALT 19 U/L (4-34); AST 29 U/L (14-36); African American GFR (CKD) >90 (>60 ml/min/1.73 sqM); Albumin 4.9 g/dL (3.5-5.0); Alkaline Phosphatase 112 U/L (38-126); Amylase 58 U/L (30-110); Anion Gap 8 mmol/L; Blood Urea Nitrogen 15 mg/dL (7-17); Calcium 9.6 mg/dL (8.4-10.2); Carbon Dioxide 26 mmol/L (22-30); Chloride 106 mmol/L (98-107); Glucose 106 mg/dL (74-99); Lipase 117 U/L (23-300); Magnesium 1.9 mg/dL (1.6-2.3); Non-African American GFR(CKD) 84 (>60 ml/min/1.73 sqM); Potassium 4.1 mmol/L (3.5-5.1); Sodium 140 mmol/L (137-145); Total Bilirubin 0.4 mg/dL (0.2-1.3); Total Protein 7.9 g/dL (6.3-8.2)
--- NOTE | 2024-07-02 21:08 | US ---
EXAMINATION TYPE: US abdomen complete DATE OF EXAM: 07/02/2024 COMPARISON: 10/11/2021 CLINICAL INDICATION: Female, 59 years old with history of epigastric ab pain, N/V, hx priti, r/o ston e; Patient states epigastric pain. Hx cholecystectomy TECHNIQUE: Grayscale and color Doppler imaging of the abdomen was performed. FINDINGS: EXAM MEASUREMENTS: Liver Length: 13.1 cm Gallbladder Wall: Surgically absent cm CBD: Obscured by gas Spleen: 10.1 cm Right Kidney: 8.3 x 4.3 x 4.7 cm Left Kidney: 10.0 4.7 x 4.5 cm SUPERINTENDENT CONSTRUCTION NOTES: Limited due to overlying bowel gas, inferocostal views used Pancreas: Visualized portion appears slightly echogenic. Pancreatic duct seen, measures 2mm. Within normal limits of the body of the pancreas. Liver: wnl Gallbladder: Surgically absent Evidence for sonographic Her's sign: No CBD: Obscured by overlying bowel gas Spleen: wnl Right Kidney: Inf pole obscured, visualized portions appear wnl Left Kidney: wnl as best seen Upper IVC: wnl Abd Aorta: Prox obscured by gas IMPRESSION: No suspicious acute ultrasound abnormality [facility], , 07/02/2024 9:06 PM
[2024-07-02 21:37] VITALS: BP 146/90; PULSE 86
== END 2024-07-02 21:37 | disposition home or self-care (01) ==
LOC: EC 17:35
DX: R10.11 Right upper quadrant pain (principal); R11.2 Nausea with vomiting, unspecified; Z88.1 Allergy status to other antibiotic agents; Z88.2 Allergy status to sulfonamides; Z88.8 Allergy status to other drugs, medicaments and biological substances; Z90.49 Acquired absence of other specified parts of digestive tract
CPT/HCPCS: 36415; 93005; 80053; 82150; 83605; 83690; 83735; 84484; 85025; 85610; 85730; 71046; 76700; 99284; 96374; 96375; J1171; J2470

== ENCOUNTER → 2024-07-13 | Outpatient (CLI) | payer BC ==
--- NOTE | 2024-07-13 23:07 | MR ---
EXAMINATION TYPE: MR knee RT wo con DATE OF EXAM: 07/13/2024 COMPARISON: Outside right knee x-ray July 08, 2024 HISTORY: Right knee medial pain, swelling, and locking x1 yr TECHNIQUE: Multiplanar, multisequence images of the knee is performed without IV contrast. FINDINGS: MEDIAL MENISCUS: Triangular and oblique signal posterior horn extends to inferior articular surface. LATERAL MENISCUS: Horizontal and oblique signal posterior horn is not definitively extend to articula r surface. CRUCIATE LIGAMENTS: The anterior and posterior cruciate ligaments are intact and unremarkable. COLLATERAL LIGAMENTS: The medial collateral ligament and lateral collateral ligament complex are inta ct and unremarkable. EXTENSOR MECHANISM: Visualized quadriceps and patellar tendons are intact. EFFUSION: Small size suprapatellar joint effusion. POPLITEAL CYST: No popliteal/elizabeth cyst. TRICOMPARTMENT SPACES: Mild to moderate narrowing patellofemoral compartment with mild spurring. CARTILAGE: Some mild fissuring and cartilaginous loss posterior patella. No full-thickness cartilagin ous loss. BONE MARROW SIGNAL: Some increased signal posterior central tibia near PCL insertion coronal image 25 . OTHER: No additional significant abnormality is appreciated. IMPRESSION: 1. Full-thickness tear posterior horn medial meniscus. 2. Intrasubstance tear posterior horn of lateral meniscus. 3. Lroc-ic-uwhxqjak patellofemoral joint arthropathy. 4. Small size suprapatellar joint effusion. [facility], , 07/13/2024 11:05 PM
== END | disposition home or self-care (01) ==
LOC: RADMRIMAIN 20:00
PROVIDERS: ATTEND Orthopaedic Surgery
DX: S83.241A Other tear of medial meniscus, current injury, right knee, initial encounter (principal); S83.281A Other tear of lateral meniscus, current injury, right knee, initial encounter; M25.469 Effusion, unspecified knee; M12.861 Other specific arthropathies, not elsewhere classified, right knee

== ENCOUNTER → 2024-08-27 | Outpatient (CLI) | payer BC ==
--- NOTE | 2024-08-27 15:03 | XR ---
Left foot. HISTORY: Pain COMPARISON: None TECHNIQUE: 3 views of the left foot were obtained FINDINGS: There is mild hallux valgus deformity. The osseous structures are intact. No intra-articular abnormal ity is seen. The soft tissues are unremarkable. IMPRESSION: Mild hallux valgus deformity with no other significant abnormality. [facility], Workstation: [facility], 08/27/2024 3:01 PM
== END | disposition home or self-care (01) ==
LOC: RADXRMAIN 14:32
PROVIDERS: ATTEND Internal Medicine
DX: M72.2 Plantar fascial fibromatosis (principal); M20.12 Hallux valgus (acquired), left foot

== ENCOUNTER → 2024-09-03 | Outpatient (CLI) | payer BC ==
[2024-09-03 15:38] LABS: Basophils # (A) 0.03 X 10*3/uL (0.00-0.10); Basophils % (A) 0.7 %; Eosinophils # (A) 0.04 X 10*3/uL (0.04-0.35); HCT 35.2 % (37.2-46.3); HGB 11.6 g/dL (12.0-15.0); Lymphocytes # (A) 1.09 X 10*3/uL (0.90-5.00); Lymphocytes % (A) 27.1 %; MCH 30.3 pg (27.0-32.0); MCV 91.9 FL (80.0-97.0); Mean Platelet Volume 11.6 FL (9.5-12.2); Monocytes # (A) 0.47 X 10*3/uL (0.20-1.00); Monocytes % (A) 11.7 %; NRBC Per 100 WBC 0 X 10*3/uL (0.00-0.01); Neutrophils # (A) 2.38 X 10*3/uL (1.80-7.70); Neutrophils % (A) 59.3 %; Platelet Count 205 X 10*3/uL (140-440); RBC 3.83 X 10*6/uL (4.10-5.20); RDW 12.7 % (11.5-14.5); WBC 4.02 X 10*3/uL (4.50-10.00)
[2024-09-03 15:41] LABS: ALT 20 U/L (8-44); AST 25 U/L (13-35); Albumin 4.6 g/dL (3.8-4.9); Albumin/Globulin Ratio 1.92 Ratio (1.60-3.17); Alkaline Phosphatase 90 U/L (41-126); BUN/Creat Ratio 18.75 Ratio (12.00-20.00); Calcium 9.5 mg/dL (8.7-10.3); Carbon Dioxide 25.9 mmol/L (21.6-31.8); Chloride 104 mmol/L (96-109); Chol/HDL Ratio 2.72 Ratio; Globulin 2.4 g/dL (1.6-3.3); Glucose 93 mg/dL (70-110); LDL Cholesterol,Calculated 91.2 mg/dL (0.0-131.0); Potassium 4.1 mmol/L (3.5-5.5); Sodium 140 mmol/L (135-145); Total Bilirubin 0.5 mg/dL (0.3-1.2); Uric Acid 4.1 mg/dL (2.9-7.7); VLDL Calculation 11.84 mg/dL (5.00-40.00)
== END | disposition home or self-care (01) ==
LOC: LABPAT 08:39
PROVIDERS: ATTEND Orthopaedic Surgery
DX: Z01.818 Encounter for other preprocedural examination (principal); M17.10 Unilateral primary osteoarthritis, unspecified knee
CPT/HCPCS: 80053; 80061; 82306; 84443; 84550; 85025; 93005

== ENCOUNTER 2024-09-17 12:10 | Day surgery (SDC) | payer BC ==
--- NOTE | 2024-09-17 01:15 | HP ---
HISTORY AND PHYSICAL DATE OF SURGERY: . HISTORY OF PRESENT ILLNESS: Petrona Arriaga is a 59-year-old patient, seen with progressive right knee pain. We discussed options regarding treatment. She elected to proceed with right knee arthroscopy. Consent obtained. PAST MEDICAL HISTORY: Hypertension, hyperlipidemia, and gastroesophageal reflux disease. SURGICAL HISTORY: Spine surgery, back surgery, arthroscopic rotator cuff repair, section, hysterectomy, and cholecystectomy. DAILY MEDICATIONS: 1. Protonix. 2. Amlodipine. 3. Atorvastatin. 4. Ibuprofen. ALLERGIES: Compazine, Reglan, and sulfa. SOCIAL HISTORY: She denies tobacco use. PHYSICAL EVALUATION OF THE RIGHT KNEE: Her range of motion is 0 to 130 degrees. She has a mild to moderate effusion. Tenderness along the medial and lateral joint lines. Positive medial Kelley's. Positive lateral Kelley's. Ligaments are stable. Hip rotation is without pain. Distal neurovascular exam is intact. IMAGING DATA: Right knee radiographs revealed mild to moderate osteoarthritis. MRI right knee revealed medial meniscal tear, possible lateral meniscal tear, mild to moderate osteoarthritis and intra-articular effusion. IMPRESSION: 1. Internal derangement of right knee with medial meniscal tear. 2. Hypertension. 3. Hyperlipidemia. PLAN: Right knee arthroscopy with partial medial meniscectomy and debridement. MMODL / IJN: [id number] /
[2024-09-17] MEDS: IV FLUID CONTINUATION 1,000 ML IV ONE (13:00)
[2024-09-17] MEDS: LACTATED RINGERS 1,000 ML IV SCH (13:00)
[2024-09-17] MEDS: SCOPOLAMINE 1 MG/72 HR PATCH TRANSDERM STA (13:00)
[2024-09-17] MEDS: LIDOCAINE 1% (10MG/ML) FOR IV START INTRADERMA PRN (13:00)
[2024-09-17] MEDS: ONDANSETRON 4 MG/2 ML VIAL IVP ONE (13:14)
[2024-09-17] MEDS: DEXAMETHASONE SOD PHOSPHATE 4 MG/ML 1 ML VIAL IVP STA (13:15)
[2024-09-17] MEDS ORDERED: diphenhydrAMINE 50 MG/ML 1 ML VIAL ONE (13:25)
[2024-09-17] MEDS ORDERED: LIDOCAINE 4% LTA KIT (4 ML) TOPICAL ONE (13:25)
[2024-09-17] MEDS ORDERED: SUCCINYLCHOLINE CHLORIDE 200 MG/10 ML VIAL IV ONE (13:25)
[2024-09-17] MEDS ORDERED: PROPOFOL 10 MG/ML 20 ML VIAL IV ONE (13:25)
[2024-09-17] MEDS ORDERED: fentaNYL (PF) 50 MCG/ML 2 ML AMP ONE (13:25)
[2024-09-17] MEDS ORDERED: LIDOCAINE 1% INJ 10MG/ML (20 ML MDV) ONE (13:25)
[2024-09-17] MEDS ORDERED: MIDAZOLAM 2 MG/2 ML VIAL ONE (13:25)
[2024-09-17] MEDS: BUPIVACAINE (PF) 0.25% 30 ML VIAL SQ ONE ×2 (13:27→14:03)
[2024-09-17 14:23] VITALS: TEMP 97.1
--- NOTE | 2024-09-17 14:23 | P.OP ---
Date of Procedure: 09/17/24 Preoperative Diagnosis: Internal derangement right knee Postoperative Diagnosis: 1. Tear medial and lateral meniscus right knee 2. Grade IV chondromalacia femoral sulcus right knee 3. Reactive synovitis medial, lateral and suprapatellar compartments right knee 4. Grade II chondromalacia medial femoral condyle right knee Procedure(s) Performed: 1. Arthroscopic partial medial and lateral meniscectomy right knee 2. Arthroscopic microfracture femoral sulcus right knee 3. Arthroscopic partial synovectomy medial, lateral and suprapatellar compartments right knee 4. Arthroscopic chondroplasty medial femoral condyle right knee Anesthesia: LAZARAA, local Surgeon: Zach Yao Estimated Blood Loss (ml): 5 Pathology: none sent Condition: stable Disposition: PACU Indications for Procedure: 59-year-old patient seen with progressive right knee pain. After having treatment options discussed, she elected to proceed with arthroscopy. Operative Findings: See description of procedure Description of Procedure: Patient was taken to the operative suite. Patient underwent a general anesthetic by the department of anesthesia. Patient was given preoperative antibiotics. The right lower extremity was placed in a well-padded arthroscopic leg joshua. The right leg was prepped and draped in the normal sterile orthopedic fashion. A lateral parapatellar and suprapatellar incision was made. Trochars were inserted. Arthroscopy was initiated. Suprapatellar pouch revealed diffuse thick reactive synovitis. The patellofemoral joint appeared to articulate congruently. There was grade II chondromalacia of the patella and grade III/IV chondromalacia femoral sulcus with osteochondral flap tears. The scope was guided into the medial gutter. No loose bodies or plica were identified. The scope was then guided into the medial compartment. A medial parapatellar incision was made. Trocar inserted followed by probe. There was a complex tear involving the posterior horn of the medial meniscus. There were grade II chondromalacia changes medial femoral condyle with some osteochondral flap tears present. There was thick reactive synovitis anteriorly. I performed a partial medial meniscectomy getting down to stable meniscal tissue. I performed a chondroplasty of the medial femoral condyle getting down to stable osteochondral tissue. I performed a partial synovectomy decompressing the reactive synovitis. The residual meniscus was stable. The residual osteochondral surface was stable. There was good decompression of the synovitis. Scope and probe were then guided into the intercondylar notch. Cruciates were identified, probed and found to be stable. The scope and probe were then guided into lateral compartment. There was a radial tear mid body lateral meniscus. There was some reactive synovitis anteriorly. There was no chondromalacia present. I performed a partial lateral meniscectomy getting down to stable meniscal tissue. I performed a partial synovectomy decompressing the reactive synovitis. The residual meniscus was stable. There was good decompression of the synovitis. The scope was in guided back into the suprapatellar compartment. Reduced a motorized shaver into the suprapatellar compartment. I performed a partial synovectomy. I performed a chondroplasty of the femoral sulcus. I did note an area of exposed bone involving the femoral sulcus measuring just over a centimeter. I introduced a microfracture awl and performed a microfracture to that area penetrating the bone with resultant bleeding at the microfracture site. The residual osteochondral surface was stable. Instruments were now removed from the joint. The joint was infiltrated with .25% Marcaine. Steri-Strips were applied to the portal sites. Sterile dressings were applied. The patient was placed into a BETINA hose. No tourniquet was utilized. The patient was awakened, transferred to a bed and taken to recovery stable satisfactory condition.
[2024-09-17] MEDS: HYDROmorphone 0.5 MG/0.5 ML SYRINGE IVP PRN (14:30)
[2024-09-17 15:37] VITALS: RESP 18
[2024-09-17] MEDS: HYDROcodone/APAP 5-325MG 1 EACH TAB PO STA (15:39)
[2024-09-17 16:18] VITALS: BP 127/82; PULSE 83
== END 2024-09-17 16:30 | disposition home or self-care (01) ==
LOC: OR 12:10
PROVIDERS: ATTEND Orthopaedic Surgery
DX: S83.241A Other tear of medial meniscus, current injury, right knee, initial encounter (principal); S83.281A Other tear of lateral meniscus, current injury, right knee, initial encounter; M94.261 Chondromalacia, right knee; M65.961 Unspecified synovitis and tenosynovitis, right lower leg; I10 Essential (primary) hypertension; E78.5 Hyperlipidemia, unspecified; Z88.2 Allergy status to sulfonamides
CPT/HCPCS: 29879; 29880; J1100; J0690; J2405; J1171; J0665

== ENCOUNTER → 2024-10-20 | Outpatient (CLI) | payer BC ==
--- NOTE | 2024-10-20 10:26 | US ---
EXAMINATION TYPE: US venous doppler duplex LE RT DATE OF EXAM: 10/20/2024 10:13 AM COMPARISON: NONE CLINICAL INDICATION: Female, 59 years old with history of R22.41 LOCALIZED SWELLING, MASS AND LUMP, R IGHT LO; Pain and swelling, Pt had knee surgery 1 month ago. Patient does not take blood thinners. TECHNIQUE: The lower extremity deep venous system is examined utilizing real time linear array sonog kina with graded compression, color doppler sonography, and spectral doppler. SIDE PERFORMED: Right FINDINGS: VESSELS IMAGED: Common Femoral Vein Deep Femoral Vein Greater Saphenous Vein * Femoral Vein Popliteal Vein Small Saphenous Vein * Proximal Calf Veins (* superficial vessels) Right Leg: No evidence of DVT, Color Doppler imaging shows patency of the vessels. Spectral waveform s are within normal limits. IMPRESSION: No evidence of deep vein thrombosis of the right lower extremity. [facility], , 10/20/2024 10:24 AM
== END | disposition home or self-care (01) ==
LOC: RADUSWWP 10-19 13:30
PROVIDERS: ATTEND Orthopaedic Surgery
DX: R22.41 Localized swelling, mass and lump, right lower limb (principal); M79.661 Pain in right lower leg

== ENCOUNTER → 2025-01-26 | Outpatient (CLI) | payer BC ==
--- NOTE | 2025-01-26 10:18 | CT ---
EXAMINATION TYPE: CT brain wo con DATE OF EXAM: 01/26/2025 9:53 AM COMPARISON: None. CLINICAL INDICATION: Female, 59 years old with history of R51.9 HEADACHE, HEADACHE TECHNIQUE: CT of the brain is performed utilizing 3 mm thick sections through the posterior fossa and 3 mm thick sections through the remaining calvarium. Study is performed within 24 hours of arrival to the hospital. Contrast used: mL of , (none if empty) CT DLP: 1015.4 mGycm, Automated exposure control for dose reduction was used. FINDINGS: No abnormal hyperdensity is present to suggest an acute intracranial hemorrhage. No mass lesion is evident. No acute infarcts are evident. Ventricles and sulci are appropriate for the patient age. Paranasal sinuses and mastoid air cells within the [id number] are clear. IMPRESSION: 1. No acute intracranial process. Follow up MRI can be performed as clinically indicated. [facility], , 01/26/2025 10:15 AM
== END | disposition home or self-care (01) ==
LOC: RADCTMAIN 08:59
PROVIDERS: ATTEND Internal Medicine
DX: R51.9 Headache, unspecified (principal)
CPT/HCPCS: 70450

== ENCOUNTER → 2025-02-22 | Outpatient (CLI) | payer BC ==
--- NOTE | 2025-02-23 08:56 | MR ---
EXAMINATION TYPE: MR brain wo/w con DATE OF EXAM: 02/22/2025 10:21 PM COMPARISON: CT 01/26/2025. CLINICAL INDICATION: Female, 59 years old with history of R51.9; PHH, Stabbing pain back of head, alka rred vision, dizziness, nausea, numbness near left eye TECHNIQUE: Multi planar, multi sequence imaging was performed through the brain including: T1, T2, In version recovery, susceptibility weighted imaging and gradient echo imaging and Diffusion weighted im aging. The patient was then given intravenous contrast and multi planar, T1 fat-saturation images wer e obtained. IV Contrast: 7.5 mL Gadobutrol FINDINGS: The mcgowan-white junctions, ventricular system, basal cisterns appear unremarkable. High T1 signal pro bable perivascular spaces in the bilateral basal ganglia. Homogenously enhancing extra-axial lesion m easuring 7 mm series 802 image 26 . There is hyperdense on CT imaging. Finding is favored represent m eningioma. Diffusion-weighted imaging shows no evidence of restricted diffusion to suggest acute/suba cute infarct. Intracranial arterial flow voids are maintained. Midline structures show no abnormality . Scattered foci of high T2 signal intensity are seen within the periventricular white matter. The fenton sceptibility weighted images do not reveal any evidence for micro-hemorrhage. After administration of gadolinium, no abnormal enhancement is seen. The bone marrow signal is within normal limits. Paranasal sinuses and mastoid air cells: No significant paranasal sinus disease. Visualized orbits: Orbital contents are intact. IMPRESSION: 1. No evidence of intracranial mass, acute/subacute infarct, or abnormal enhancement. 2. Nonspecific white matter changes, likely related to small vessel ischemic disease. 3. Left posterior falx probably extra-axial lesion thought to represent a 7 mm meningioma. [facility], , 02/23/2025 8:54 AM
== END | disposition home or self-care (01) ==
LOC: RADMRIMAIN 21:45
PROVIDERS: ATTEND Internal Medicine
DX: R90.82 White matter disease, unspecified (principal); H53.8 Other visual disturbances; R42 Dizziness and giddiness; R11.0 Nausea; R20.0 Anesthesia of skin
CPT/HCPCS: 70553; A9585

== ENCOUNTER → 2025-03-05 | Outpatient (CLI) | payer BC ==
--- NOTE | 2025-03-05 08:31 | MM ---
Reason for Exam: Screening (asymptomatic). Last screening mammogram was performed 12 month(s) ago. Patient History: Menarche at age 14. First Full-Term at age 22. Left ovary removed at age 31. Hysterectomy at age 31. Postmenopausal. Patient has history of breast feeding. Risk Values: Michelle 5 year model risk: 1.2%. NCI Lifetime model risk: 6.9%. Prior Study Comparison: 12/06/2022 Bilateral MG screening mammo w CAD, [facility]. 12/11/2022 Right MG 3D work up w/cad RT, [facility]. 03/04/2024 Bilateral MG 3D screening mammo w/cad, [facility]. Tissue Density: The breasts are heterogeneously dense, which may obscure small masses. Findings: Analyzed By CAD. There is no suspicious group of microcalcifications or new suspicious mass in either breast. Stable lymph node Overall Assessment: Benign, BI-RAD 2 Management: Screening Mammogram of both breasts in 1 year. . Patient should continue monthly self-breast exams. A clinical breast exam by your physician is recommended on an annual basis. This exam should not preclude additional follow-up of suspicious palpable abnormalities. Note on Michelle scores and lifetime risk: 1. A Michelle score greater than 3% is considered moderate risk. If this is the case, consider specialist referral to assess eligibility for a risk reducing agent. 2. If overall lifetime risk for the development of breast cancer is 20% or higher, the patient may qualify for future screening with alternating mammogram and breast MRI. [facility], , 03/05/2025 8:28 AM. Electronically signed and approved by: Rolando Grullon M.D. Radiolog[facility]
== END | disposition home or self-care (01) ==
LOC: RADMAMWWP 07:28
PROVIDERS: ATTEND Internal Medicine
DX: Z12.31 Encounter for screening mammogram for malignant neoplasm of breast (principal); R92.333 Mammographic heterogeneous density, bilateral breasts; Z78.0 Asymptomatic menopausal state
CPT/HCPCS: 77063; 77067